=== PATIENT | male | born 1960 | race Caucasian/White ===

== ENCOUNTER 2016-09-18 07:45 | Inpatient (IN) | payer OTHER ==
[2016-09-18] VITALS (26 sets, daily range): BP systolic 80–140; BP diastolic 58–84; PULSE 103–143; RESP 22–33; TEMP 98.2; Ht 175.3 cm; Wt 74.5 kg
[~2016-09-18] VITALS: Ht 175.3 cm; Wt 74.5 kg
[~2016-09-18 07:45] MED LIST: ASPI81TA3 GTB; CEFE1FRO IV; CRAN3875 GTB; FLUC100T39 GTB; FLUC100T39 PO; GEMF600T60 GTB; IPRA3AMP HHN; LANS30CA GTB; LANT3I SC; LOV40I SC; MAGN400O4 PO; METF500T4 GTB; METO-407 GTB; NA P118E PR; NOVO3I SC; THIA100T10 PO; TRAM-40 GTB; [UNRECOGNIZED DRUG - CODE] PO
--- NOTE | 2016-09-18 08:00 | ERA ---
ER Documentation Chief Complaint Date/Time DATE: 09/18/16 TIME: 08:00 Chief Complaint FROM SNF FOR EVAL OF FEVER SINCE 0300 HPI Due to the patient's clinical condition and cognitive impairment he is unable to provide any history which is obtained entirely from transferring paramedics, review of intermediate facility records and the patient's family is at the bedside. 55-year-old male with a history of traumatic brain injury, chronic encephalopathy, functional quadriplegia, diabetes mellitus, ASHD, peripheral vascular disease, pneumonia, sepsis, renal failure, urinary tract infections, decubitus ulcers, metabolic syndrome, sideroblastic anemia, respiratory failure status post tracheostomy, PEG placement, craniotomy, appendectomy and cholecystectomy brought to the ED via ambulance from [facility] for evaluation of fever of 102.2 and heart rate of 150 this morning at 3 AM. ROS All systems reviewed and are negative except as per history of present illness. Medications Home Meds Active Scripts Nystatin* (Mycostatin*) 5 Ml Susp, 5 ML PO Q12 for 14 Days Prov:DIANA PAYNE NP 01/23/16 Lansoprazole* (Lansoprazole*) 30 Mg Capsule.dr, 30 MG GTB DAILY@06 for 30 Days Prov:DIANA PAYNE NP 01/23/16 Ipratropium-Albuterol (Ipratropium-Albuterol) 0.5-3 Mg/3 Ml Ampul.neb, 3 ML HHN Q6H RESP THERAPY for 30 Days Prov:DIANA PAYNE NP 01/23/16 Insulin Glargine* (Lantus*) 100 Unit/Ml Soln, 30 UNIT SC BID for 30 Days Prov:DIANA PAYNE NP 01/23/16 Insulin Aspart* (Novolog Insulin Pen*) 100 Unit/Ml Soln, 0 UNIT SC Q6 for 30 Days Prov:DIANA PAYNE NP 01/23/16 Enoxaparin Sodium* (Enoxaparin Sodium*) 40 Mg/0.4 Ml Syringe, 40 MG SC DAILY for 30 Days Prov:DIANA PAYNE NP 01/23/16 Aspirin (Aspirin) 81 Mg Chew, 81 MG GTB DAILY for 30 Days, TAB Prov:DIANA PAYNE NP 01/23/16 Reported Medications Zinc Sulfate* (Zinc Sulfate*) 220 Mg Tablet, 220 MG GTB DAILY, TAB 09/18/16 Ascorbic Acid* (Ascorbic Acid*) 500 Mg/5 Ml Syrup, 500 MG GTB DAILY, #300 ML 09/18/16 Cyanocobalamin* (Vitamin B12*) 100 Mcg Tab, 100 MCG GTB DAILY, TAB 09/18/16 Acetaminophen* (Acetaminophen*) 650 Mg Tablet, 650 MG GTB Q4 Y for PAIN AND OR ELEVATED TEMP, #30 TAB 09/18/16 Insulin Glargine,Hum.rec.anlog (Radha Royal) 300 Unit/1 Ml Insuln.pen, 62 UNIT SQ Q12 09/18/16 Multivit &Minerals/Ferrous Fum (MULTIVITAMIN LIQUID) 9 Mg/15 Ml Liquid, 18 MG GTB DAILY 09/18/16 Folic Acid* (Folic Acid*) 1 Mg Tablet, 1 MG GTB DAILY, TAB 09/18/16 Ferrous Sulfate (Ferrous Sulfate) 220 Mg/5 Ml Elixir, 330 MG GTB DAILY, BOTTLE 09/18/16 Bisacodyl* (Bisacodyl*) 10 Mg Supp, 10 MG HI DAILY Y for CONSTIPATION, SUPP 09/18/16 Docusate Sodium* (Docusate Sodium*) 100 Mg Capsule, 100 MG GTB QHS, #30 CAP 09/18/16 Chlorhexidine Gluconate (Peridex) 473 Ml Mouthwash, 15 ML MM Q12, BOTTLE 09/18/16 Ipratropium-Albuterol (Ipratropium-Albuterol) 0.5-3 Mg/3 Ml Ampul.neb, 3 ML INHALATION Q6 Y for WHEEZING AND SOB, #30 VIAL 09/18/16 Dextran 70/Hypromellose (Artificial Tears Eye Drops) 15 Ml Drops, 1 DROP BOTH EYES BID, BOTTLE 09/18/16 Albuterol Sulfate* (Albuterol Sulfate* Neb) 0.083%-3 Ml Neb, 2.5 MG NEB Q3H Y for WHEEZING AND SOB, #30 VIAL 09/18/16 Tramadol Hcl* (Ultram*) 50 Mg Tablet, 50 MG GTB DAILY Y for SEVERE PAIN LEVEL 7- 10, TAB 01/17/16 Cran/Vitc/Mannose/Inulin/Brom (Uti-Stat Liquid) 3,875 Mg/30 Ml Liquid, 3875 MG GTB BID 01/17/16 Gemfibrozil* (Gemfibrozil*) 600 Mg Tablet, 600 MG GTB BID, TAB 01/17/16 Thiamine* (Thiamine*) 100 Mg Tablet, 100 MG PO DAILY, TAB 01/09/16 Magnesium Hydroxide* (Milk Of Magnesia*) 400 Mg/5 Ml Oral.susp, 30 ML PO DAILY Y for CONSTIPATION, ML 01/09/16 Metformin* (Glucophage*) 500 Mg Tab, 500 MG GTB BID WITH MEALS, #30 TAB 01/09/16 Metoprolol Tartrate* (Lopressor*) 100 Mg Tablet, 100 MG GTB BID for HOLD FOR SBP <110,HR<60, #60 TAB 01/09/16 Na Phos,M-B/Na Phos,Di-Ba* (Fleet* Enema) 118 Ml Enema, 118 ML HI Q48H Y for CONSTIPATION, ENEMA 01/09/16 Discontinued Scripts Fluconazole* (Fluconazole*) 100 Mg Tablet, 100 MG PO DAILY for 7 Days, TAB Prov:SJ CALVIN 01/25/16 Cefepime Hcl/Dextrose, Iso-Osm (Cefepime 1 Gm Injection) 1 Gm/50 Ml Froz.piggy, 1 GM IV Q8H for 7 Days Prov:SJ CALVIN 01/25/16 Fluconazole* (Fluconazole*) 100 Mg Tablet, 100 MG GTB DAILY for 30 Days, TAB Prov:DIANA PAYNE NP 01/23/16 Allergies Allergies: Coded Allergies: No Known Allergy (Unverified , 09/18/16) PMhx/Soc Reviewed in chart. As per HPI. History of Surgery: Yes (s/p trach) Hx Neurological Disorder: Yes (traumatic brain injury, encephalopathy, craniotomy) Hx Respiratory Disorders: Yes (respiratory failure s/p tracheostomy) Hx Cardiac Disorders: Yes (HTN) Hx Psychiatric Problems: No Hx Miscellaneous Medical Probl: Yes (PAD,SIRS,htn,hypernatremia,chronic encephalopathy) Smoking Status: Unknown if ever smoked FmHx Reviewed in chart. Mother: CVA. Not relevant to presenting complaint. Physical Exam Vitals Vital Signs Date Time Temp Pulse Resp B/P Pulse Ox O2 Delivery O2 Flow Rate FiO2 09/18/16 09:50 102.3 129 29 97/57 99 8.0 09/18/16 08:23 8 09/18/16 07:51 104.9 157 34 111/69 99 09/18/16 07:50 98 8.0 Physical Exam Const: Chronically ill appearing, unresponsive Head: S/P craniotomy Eyes: Normal Conjunctiva ENT: Normal External Ears, Nose and Mouth. MM dry. Neck: Nontender. Tracheostomy site without erythema, induration or drainage Resp: Tachypneic. Decreased BS with scattered rhonchi and rales but no wheezes. Cardio: Tachycardic. Regular rate and rhythm, no murmurs Abd: Soft, non tender, non distended. Normal bowel sounds. G-Tube site clean without erythema or drainage. Skin: No petechiae or rashes. Poor skin turgor. Sacral erythema with decubitus. Back: No midline or flank tenderness Ext: No cyanosis, or edema Neur: Unresponsive. Flaccid. Result Diagram: [id number]/19/[id number] Results 24 hrs Laboratory Tests Test 09/18/16 08:00 09/18/16 08:05 09/18/16 08:18 09/18/16 08:24 Activated Partial Thromboplast Time 35.5Sec Alanine Aminotransferase (ALT/SGPT) 21IU/L Albumin 3.6g/dl Albumin/Globulin Ratio 0.73 Alkaline Phosphatase 194IU/L Anion Gap 19 Aspartate Amino Transf (AST/SGOT) 55IU/L Basophils # 0.010^3/ul Basophils % 0.2% Blood Morphology Comment Blood Urea Nitrogen 50mg/dl Calcium Level 9.5mg/dl Carbon Dioxide Level 26mmol/L Chloride Level 103mmol/L Cholesterol Level 216mg/dl Cholesterol/HDL Ratio 12.0RATIO Creatinine 1.19mg/dl Direct Bilirubin 0.00mg/dl Eosinophils # 0.010^3/ul Eosinophils % 0.0% Globulin 4.90g/dl Glucose Level 306mg/dl HDL Cholesterol 18mg/dl Hematocrit 43.2% Hemoglobin 14.3g/dl Hemoglobin A1c 8.0% INR International Normalized Ratio 1.30 Indirect Bilirubin 0.1mg/dl LDL Cholesterol, Calculated 101mg/dl Lactic Acid Level 4.2mmol/L Lymphocytes # 3.710^3/ul Lymphocytes % 24.2% Mean Corpuscular Hemoglobin 29.5pg Mean Corpuscular Hemoglobin Concent 33.1g/dl Mean Corpuscular Volume 88.9fl Mean Platelet Volume 10.9fl Monocytes # 1.810^3/ul Monocytes % 11.6% Neutrophils # 9.710^3/ul Neutrophils % 64.0% Nucleated Red Blood Cells # 0.010^3/ul Nucleated Red Blood Cells % 0.0/100WBC Platelet Count 86672^3/UL Potassium Level 4.4mmol/L Prothrombin Time 16.3Sec Prothrombin Time Ratio 1.3 Red Blood Count 4.8610^6/ul Red Cell Distribution Width 15.2% Sodium Level 144mmol/L Thyroid Stimulating Hormone (TSH) 1.150MIU/L Total Bilirubin 0.1mg/dl Total Protein 8.5g/dl Triglycerides Level 487mg/dl Troponin I 0.051ng/ml White Blood Count 15.110^3/ul Bedside Glucose 296mg/dL Arterial Blood HCO3 23.1mmol/L Arterial Blood Base Excess 0.1mmol/L Arterial Blood Oxygen Saturation 98.4mmHG Rah Test ACCEPTAB Arterial Blood Gas Puncture Site Right Radial Arterial Blood Carboxyhemoglobin 0% Arterial Blood Date Drawn 09/18/2016 8:48:37 AM Arterial Blood Methemoglobin 0.3% Arterial Blood pCO2 (Temp correct) 32.4mmhg Arterial Blood pH (Temp corrected) 7.470 Arterial Blood pO2 (Temp corrected) 124.0mmHG Blood Gas A-a O2 Differential 160.0mmHg Blood Gas Actual Respiration Rate 40 Blood Gas Modality [facility] Blood Gas Notified Time 09/18/2016 9:11:35 AM Blood Gas Notified Whom VENANCIO RT Blood Gas Specimen Source Blood arterial Blood Gas Temperature 37.0C FiO2 45.0% Oxyhemoglobin Percent 98.1% Total Hemoglobin 13.9g/dl Urine Bacteria MODERATE Urine Bilirubin NEGATIVE Urine Clarity HAZY Urine Color LT. YELLOW Urine Glucose NEGATIVE% Urine Hemoglobin 3+ Urine Ketones NEGATIVE Urine Leukocyte Esterase 1+ Urine Microscopic RBC 10-25/HPF Urine Microscopic WBC 10-25/HPF Urine Nitrite NEGATIVE Urine Specific [place] 1.020 Urine Total Protein 2+ Urine Urobilinogen 0.2 E.U./dL Urine pH 6.0 Current Medications Medications (Trade) Dose Ordered Sig/Shirley Route PRN Reason Start Time Stop Time Status Last Admin Dose Admin Sodium Chloride (NS) 2,170 ml BOLUS OVER 2 HOURS STAT IV* 09/18/16 08:01 09/18/16 13:51 DC 09/18/16 08:30 Acetaminophen 650 mg 650 mg ONCE STAT HI 09/18/16 08:01 09/18/16 13:51 DC 09/18/16 08:30 Cefepime HCl 50 ml @ 100 mls/hr ONCE STAT IVPB 09/18/16 08:01 09/18/16 13:52 DC 09/18/16 08:30 Vancomycin HCl (Vancocin) 250 ml @ 125 mls/hr ONCE ONCE IVPB 09/18/16 08:30 09/18/16 13:52 DC 09/18/16 09:35 Lidocaine 20 ml 20 ml ONCE ONCE SC 09/18/16 09:30 09/18/16 13:52 DC Sodium Chloride (NS) 1,000 ml @ 20 mls/hr Q24H IV 09/18/16 09:58 09/18/16 20:10 Ondansetron HCl (Zofran Inj) 4 mg Q6H PRN IV NAUSEA AND/OR VOMITING 09/18/16 10:00 Albuterol (Ventolin Hfa) 4 puff Q2H RESP THERAPY PRN INH SHORTNESS OF BREATH 09/18/16 10:00 Ipratropium [place] (Atrovent Hfa) 4 puff Q2H RESP THERAPY PRN INH SHORTNESS OF BREATH 09/18/16 10:00 Nitroglycerin (Nitroglycerin (Sl Tab) 0.4 Mg) 1 tab Q5M PRN SL CHEST PAIN 09/18/16 10:00 Acetaminophen (Tylenol Supp) 650 mg Q4H PRN HI PAIN LEVEL 1-3 OR FEVER 09/18/16 10:00 Morphine Sulfate (morphine) 2 mg Q4H PRN IV PAIN LEVEL 7-10 09/18/16 10:00 09/19/16 06:52 Lorazepam (Ativan) 1 mg Q2H PRN IV ANXIETY 09/18/16 10:00 Bisacodyl 10 mg 10 mg DAILY PRN HI CONSTIPATION 09/18/16 10:00 Sodium Chloride 1,000 ml @ 1,000 mls/hr Q1H IV 09/18/16 09:58 09/18/16 13:52 DC Norepinephrine (Levophed) 250 ml @ 7.5 mls/hr PER PROTOCOL IV 09/18/16 10:00 09/18/16 23:00 DC RHYTHM STRIP INTERPRETATION: Time: 08:00. Sinus tachycardia. No ectopy. Indication: Sepsis. EKG: TIME: 08:08. Sinus tachycardia. Ventricular rate 161. T-wave inversions in 3, aVF and V6. No acute ST segment elevation. Left anterior hemiblock. No ectopy. EP Interpretation: Abnormal EKG. IMAGING: PROCEDURE: XR Chest. CLINICAL INDICATION: Shortness of breath TECHNIQUE: A single portable view of the chest was obtained. COMPARISON: 01/17/2016 FINDINGS: The tracheostomy tube is unchanged. The cardiomediastinal silhouette is enlarged and is stable. Diffuse pulmonary vascular congestion is seen with underlying interstitial pulmonary edema. The possibility of small pleural effusions cannot be excluded. No dense consolidation is seen. The soft tissues and osseous structures are unremarkable. IMPRESSION: Diffuse pulmonary vascular congestion with underlying interstitial pulmonary edema. RPTAT: HPNM Physician Harpal Date Time Electronically viewed and signed by Physician Harpal on 09/18/2016 08 :59 / Procedures/MDM DOCUMENTS REVIEWED: ED nurse, prior records, intermediate facility records, prior ED. ED COURSE: Tylenol 650 mg HI normal saline 30 cc/kg fluid bolus over 2 hours. Cefepime 1 g/vancomycin 1 g [employer]-year-old male with a history of traumatic brain injury, chronic encephalopathy, functional quadriplegia, diabetes mellitus, ASHD , peripheral vascular disease, pneumonia, sepsis, renal failure, urinary tract infections, decubitus ulcers, metabolic syndrome, sideroblastic anemia, respiratory failure status post tracheostomy, PEG placement, craniotomy, appendectomy and cholecystectomy brought to the ED via ambulance from [facility] for evaluation of fever of 102.2 and heart rate of 150 this morning at 3 AM. Multiple criteria for systemic inflammatory response syndrome. Septic shock with lactate of 4.2 likely secondary to urinary tract infection. Chest x-ray consistent with volume overload and pulmonary edema. IV fluids, and antibiotics after cultures as per protocol. Admit MDM: Patient's infectious symptoms have not stabilized and the patient is at risk of rapid decompensation. The patient will be admitted to the ICU for careful hydration, antibiotic therapy, and infectious source control. Severe Sepsis criteria: Infectious source: Urinary tract infection End organ damage indicated by: Lactate 4.2 mmol/L Sepsis Management: Time of recognition of septic shock: 08:56 Within 3 hours of recognition: Blood cultures x 2 before broad-spectrum antibiotics: Yes 30 ml/kg NS bolus Completed Initial lactate 4.2 Repeat lactate 3.1 Septic Shock Assessment: Any lactic acid > 4.0 Yes No hypotension Volume Re-assessment for Septic Shock (post 30 ml/kg bolus): Temp 98.1, BP 100/58, HR 112, RR 25, Pox 100% Heart tachycardic, regular rate & rhythm Lungs Decreased breath sounds with rales at the bases Skin Warm & dry Cap Refill less than 2 seconds Peripheral pulses radially present Accepting Care Team Current data and ongoing care discussed. Time: 09:50 Admitting Physician: Dr Elizondo Critical Care: Critical care time not including other separately reportable procedures: 35 minutes Emergent fluid management while maintaining close respiratory support. Provision of immediate and broad-spectrum antibiotic therapy. Simultaneous assessment for possible sources in order to direct targeted therapy. Consideration for invasive and chemical support to prevent cardiopulmonary collapse. Departure Diagnosis: Primary Impression: Fever Qualified Code: R50.9 - Fever, unspecified fever cause Additional Impressions: Septic shock Urinary tract infection Qualified Code: N39.0 - Urinary tract infection with hematuria, site unspecified Pulmonary edema Qualified Code: J81.0 - Acute pulmonary edema Encephalopathy chronic Functional quadriplegia Tracheostomy in place PEG (percutaneous endoscopic gastrostomy) status Condition: Critical NAIF MAK MD Sep 18, 2016 08:00 Thiamine HCl (Vitamin B1) 100 mg DAILY PO 09/19/16 09:00 Tramadol HCl (Ultram) 50 mg DAILY PRN GTB SEVERE PAIN LEVEL 7-10 09/18/16 11:00 Miscellaneous Information 3,875 mg BID GTB 09/18/16 21:00 09/18/16 21:00 DC Miscellaneous Information 1 ea NOTE XX 09/18/16 11:00 Glucose (Glutose) 15 gm Q15M PRN PO DECREASED GLUCOSE 09/18/16 11:00 Glucose (Glutose) 22.5 gm Q15M PRN PO DECREASED GLUCOSE 09/18/16 11:00 Dextrose (D50w Syringe) 25 ml Q15M PRN IV DECREASED GLUCOSE 09/18/16 11:00 Dextrose (D50w Syringe) 50 ml Q15M PRN IV DECREASED GLUCOSE 09/18/16 11:00 Glucagon (Glucagen) 1 mg Q15M PRN IM DECREASED GLUCOSE 09/18/16 11:00 Glucose (Glutose) 15 gm Q15M PRN BUCCAL DECREASED GLUCOSE 09/18/16 11:00 Miscellaneous Information 1 ea NOTE XX 09/18/16 11:30 Glucose (Glutose) 15 gm Q15M PRN PO DECREASED GLUCOSE 09/18/16 11:30 Glucose (Glutose) 22.5 gm Q15M PRN PO DECREASED GLUCOSE 09/18/16 11:30 Dextrose (D50w Syringe) 25 ml Q15M PRN IV DECREASED GLUCOSE 09/18/16 11:30 Dextrose (D50w Syringe) 50 ml Q15M PRN IV DECREASED GLUCOSE 09/18/16 11:30 Glucagon (Glucagen) 1 mg Q15M PRN IM DECREASED GLUCOSE 09/18/16 11:30 Glucose (Glutose) 15 gm Q15M PRN BUCCAL DECREASED GLUCOSE 09/18/16 11:30 RHYTHM STRIP INTERPRETATION: Time: 08:00. Sinus tachycardia. No ectopy. Indication: Sepsis. EKG: TIME: 08:08. Sinus tachycardia. Ventricular rate 161. T-wave inversions in 3, aVF and V6. No acute ST segment elevation. Left anterior hemiblock. No ectopy. EP Interpretation: Abnormal EKG. IMAGING: PROCEDURE: XR Chest. CLINICAL INDICATION: Shortness of breath TECHNIQUE: A single portable view of the chest was obtained. COMPARISON: 01/17/2016 FINDINGS: The tracheostomy tube is unchanged. The cardiomediastinal silhouette is enlarged and is stable. Diffuse pulmonary vascular congestion is seen with underlying interstitial pulmonary edema. The possibility of small pleural effusions cannot be excluded. No dense consolidation is seen. The soft tissues and osseous structures are unremarkable. IMPRESSION: Diffuse pulmonary vascular congestion with underlying interstitial pulmonary edema. RPTAT: HPNM Urbano Ribera Physician Date Time Electronically viewed and signed by Urbano Ribera Physician on 09/18/2016 08 :59 / Procedures/MDM DOCUMENTS REVIEWED: ED nurse, prior records, intermediate facility records, prior ED. ED COURSE: Tylenol 650 mg HI normal saline 30 cc/kg fluid bolus over 2 hours. Cefepime 1 g/vancomycin 1 g [employer]-year-old male with a history of traumatic brain injury, chronic encephalopathy, functional quadriplegia, diabetes mellitus, ASHD , peripheral vascular disease, pneumonia, sepsis, renal failure, urinary tract infections, decubitus ulcers, metabolic syndrome, sideroblastic anemia, respiratory failure status post tracheostomy, PEG placement, craniotomy, appendectomy and cholecystectomy brought to the ED via ambulance from [facility] for evaluation of fever of 102.2 and heart rate of 150 this morning at 3 AM. Multiple criteria for systemic inflammatory response syndrome. Septic shock with lactate of 4.2 likely secondary to urinary tract infection. Chest x-ray consistent with volume overload and pulmonary edema. IV fluids, and antibiotics after cultures as per protocol. Patient be admitted to the intensive care unit for further evaluation and management. Admit MDM: Patient's infectious symptoms have not stabilized and the patient is at risk of rapid decompensation. The patient will be admitted for careful hydration, antibiotic therapy, and infectious source control. Severe Sepsis criteria: Infectious source: Urinary tract infection End organ damage indicated by: Lactate 4.2 mmol/L Sepsis Management: Time of recognition of septic shock: 08:56 Within 3 hours of recognition: Blood cultures x 2 before broad-spectrum antibiotics: Yes 30 ml/kg NS bolus Completed Initial lactate 4.2 Repeat lactate 3.1 Septic Shock Assessment: Any lactic acid > 4.0 Yes No hypotension Volume Re-assessment for Septic Shock (post 30 ml/kg bolus): Temp 98.1, BP 100/58, HR 112, RR 25, Pox 100% Heart tachycardic, regular rate & rhythm Lungs Decreased breath sounds with rales at the bases Skin Warm & dry Cap Refill less than 2 seconds Peripheral pulses radially present Accepting Care Team Current data and ongoing care discussed. Time: 09:50 Admitting Physician: Dr Elizondo Critical Care: Critical care time not including other separately reportable procedures: 35 minutes Emergent fluid management while maintaining close respiratory support. Provision of immediate and broad-spectrum antibiotic therapy. Simultaneous assessment for possible sources in order to direct targeted therapy. Consideration for invasive and chemical support to prevent cardiopulmonary collapse. Departure Diagnosis: Primary Impression: Fever Qualified Code: R50.9 - Fever, unspecified fever cause Additional Impressions: Septic shock Urinary tract infection Qualified Code: N39.0 - Urinary tract infection with hematuria, site unspecified Pulmonary edema Qualified Code: J81.0 - Acute pulmonary edema Encephalopathy chronic Functional quadriplegia Tracheostomy in place PEG (percutaneous endoscopic gastrostomy) status Condition: Critical NAIF MAK MD Sep 18, 2016 08:00 NAIF MAK MD Sep 18, 2016 08:00
[2016-09-18] MEDS ORDERED: ACETAMINOPHEN 650 MG SUPP PR STA (08:01)
[2016-09-18] MEDS ORDERED: CEFEPIME 2GM/50 ML (PMX) 50 ML IVPB STA (08:01)
[2016-09-18] MEDS ORDERED: SODIUM CHLORIDE 0.9% 1L BAG IV* STA (08:01)
[2016-09-18 08:26] LABS: BASOPHILS % 0.2 % (0.0-2.0); HEMATOCRIT 43.2 % (42.0-52.0); HEMOGLOBIN 14.3 g/dl (14.0-18.0); LYMPHOCYTES # 3.7 10^3/ul (0.8-2.9); LYMPHOCYTES % 24.2 % (15.0-51.0); MEAN CORPUSCULAR HEMOGLOBIN 29.5 pg (29.0-33.0); MEAN CORPUSCULAR HGB CONC 33.1 g/dl (32.0-37.0); MEAN CORPUSCULAR VOLUME 88.9 fl (82.0-101.0); MEAN PLATELET VOLUME 10.9 fl (7.4-10.4); MONOCYTE # 1.8 10^3/ul (0.3-0.9); MONOCYTES % 11.6 % (0.0-11.0); NEUTROPHIL # 9.7 10^3/ul (1.6-7.5); PLATELET COUNT 296 10^3/UL (140-440); RED BLOOD COUNT 4.86 10^6/ul (4.70-6.10); RED CELL DISTRIBUTION WIDTH 15.2 % (11.5-14.5); UNCORRECTED WBC 15.1 10^3/ul (4.8-10.8); WHITE BLOOD COUNT 15.1 10^3/ul (4.8-10.8)
[2016-09-18] MEDS ORDERED: VANCOMYCIN 1 GM (PMX) 250 ML IVPB ONE (08:30)
[2016-09-18 08:31] LABS: CONDITION 1; LH ANALYZER COMMENTS 1
[2016-09-18 08:37] LABS: INR 1.3; PROTIME 16.3 Sec (12.2-14.2); PT RATIO 1.3
[2016-09-18 08:38] LABS: ALBUMIN 3.6 g/dl (3.3-4.9); PARTIAL THROMBOPLASTIN TIME 35.5 Sec (25.0-35.0); POTASSIUM 4.4 mmol/L (3.5-5.1)
[2016-09-18 08:40] LABS: BILIRUBIN,INDIRECT 0.1 mg/dl (0-1.1); BILIRUBIN,TOTAL 0.1 mg/dl (0.2-1.3); CREATININE 1.19 mg/dl (0.61-1.24)
[2016-09-18 08:41] LABS: ALBUMIN/GLOBULIN RATIO 0.73; TOTAL PROTEIN 8.5 g/dl (6.1-8.1)
[2016-09-18 08:42] LABS: CALCIUM 9.5 mg/dl (8.4-10.2)
[2016-09-18 08:46] LABS: ADD UMIC YES; URINE BILIRUBIN (Dip) NEGATIVE (NEGATIVE); URINE BLOOD (Dip) 3+ (NEGATIVE); URINE COLOR LT. YELLOW (YELLOW); URINE GLUCOSE (Dip) NEGATIVE (NEGATIVE); URINE KETONES (Dip) NEGATIVE (NEGATIVE); URINE LEUKOCYTE ESTERASE (Dip) 1+ (NEGATIVE); URINE NITRITE (Dip) NEGATIVE (NEGATIVE); URINE TOTAL PROTEIN (Dip) 2+ (NEGATIVE); URINE UROBILINOGEN (Dip) 0.2 E.U./dL (0.1-1.0)
[2016-09-18 08:53] LABS: TROPONIN-I 0.051 ng/ml (0.00-0.12)
--- NOTE | 2016-09-18 08:59 | RADRPT ---
PROCEDURE: XR Chest. CLINICAL INDICATION: Shortness of breath TECHNIQUE: A single portable view of the chest was obtained. COMPARISON: 01/17/2016 FINDINGS: The tracheostomy tube is unchanged. The cardiomediastinal silhouette is enlarged and is stable. Dif fuse pulmonary vascular congestion is seen with underlying interstitial pulmonary edema. The possib ility of small pleural effusions cannot be excluded. No dense consolidation is seen. The soft tissu es and osseous structures are unremarkable. IMPRESSION: Diffuse pulmonary vascular congestion with underlying interstitial pulmonary edema. RPTAT: HPNM Physician Harpal Date Time Electronically viewed and signed by Urbano Ribera Physician on 09/18/2016 08:59 /
[2016-09-18 09:06] LABS: BACTERIA,URINE MODERATE
[2016-09-18 09:11] LABS: Allen Test ACCEPTAB; Arterial Base Excess 0.1 mmol/L (-3.0-3); Arterial COHb 0 % (0.0-3.0); Arterial Fraction of Oxyhgb 98.1 % (93.0-99.0); Arterial HCO3 23.1 mmol/L (22.0-26.0); Arterial MetHb 0.3 % (0.0-1.5); Arterial Total Hemglobin 13.9 g/dl (12.0-18.0); MODE TRACH COLLAR
[2016-09-18] MEDS ORDERED: LIDOCAINE 1% (MDV) 20 ML INJ SC ONE (09:30)
[2016-09-18] MEDS ORDERED: BISACODYL 10 MG SUPP PR PRN (10:00)
[2016-09-18] MEDS ORDERED: NITROGLYCERIN (SL) 0.4 MG TAB SL PRN (10:00)
[2016-09-18] MEDS ORDERED: ALBUTEROL HFA 8 GM INHALER INH PRN (10:00)
[2016-09-18] MEDS ORDERED: ONDANSETRON 4 MG INJ IV PRN (10:00)
[2016-09-18] MEDS ORDERED: LORAZEPAM 2 MG INJ IV PRN (10:00)
[2016-09-18] MEDS ORDERED: IPRATROPIUM (HFA) 12.9 GM INHALER INH PRN (10:00)
[2016-09-18] MEDS ORDERED: NORepinephrine 8MG/250 ML (PMX 250 ML IV SCH (10:00)
[2016-09-18] MEDS ORDERED: ACETAMINOPHEN 650 MG SUPP PR PRN (10:00)
[2016-09-18] MEDS ORDERED: GLUCOSE GEL 15 GRAM TUBE BUCCAL PRN ×2 (11:00→11:30)
[2016-09-18] MEDS ORDERED: MAGNESIUM HYDROXIDE 30ML CUP PO PRN (11:00)
[2016-09-18] MEDS ORDERED: DEXTROSE 50% 50 ML SYRINGE IV PRN ×4 (11:00→11:30)
[2016-09-18] MEDS ORDERED: GLUCAGON 1 MG INJ IM PRN ×2 (11:00→11:30)
[2016-09-18] MEDS ORDERED: traMADol 50 MG TAB GTB PRN (11:00)
[2016-09-18] MEDS ORDERED: GLUCOSE GEL 15 GRAM TUBE PO PRN ×4 (11:00→11:30)
[2016-09-18] MEDS ORDERED: ALBU2.5V3 NEB (11:33)
[2016-09-18] MEDS ORDERED: DEXT15DR4 BOTH EYES (11:34)
[2016-09-18] MEDS ORDERED: IPRA3AMP INHALATION (11:34)
[2016-09-18] MEDS ORDERED: CHLO473M4 MM (11:35)
[2016-09-18] MEDS ORDERED: DOCU-159 GTB (11:36)
[2016-09-18] MEDS ORDERED: DULR PR (11:37)
[2016-09-18] MEDS ORDERED: FERR220S3 GTB (11:38)
[2016-09-18] MEDS ORDERED: FOLI-49 GTB (11:39)
[2016-09-18] MEDS ORDERED: MULT9LIQ4 GTB (11:40)
[2016-09-18] MEDS ORDERED: ACET-2047 GTB (11:41)
[2016-09-18] MEDS ORDERED: INSU300I SQ (11:41)
[2016-09-18] MEDS ORDERED: CYAN100 GTB (11:46)
[2016-09-18] MEDS ORDERED: ASCO500S2 GTB (11:47)
[2016-09-18] MEDS ORDERED: ZINC220T GTB (11:48)
--- NOTE | 2016-09-18 11:59 | RADRPT ---
PROCEDURE: XR Chest. CLINICAL INDICATION: PICC line placement TECHNIQUE: PA and lateral chest x-ray. COMPARISON: 09/18/2016 at 0834 hours FINDINGS: There has been interval placement of right-sided PICC line which terminates 3 cm into the right atri um. Tracheostomy tube demonstrates stable and satisfactory position. The lung volumes are low. There are diffuse bilateral interstitial and airspace opacities which are unchanged from previous ex am. There is no focal consolidation. No pleural effusion identified. No evidence of pneumothorax. The cardiomediastinal silhouette is unremarkable. The soft tissues are within normal limits. Bony structures are unremarkable. IMPRESSION: 1. Interval placement right-sided PICC line which terminates 3 cm into the right atrium. 2. Stable and satisfactory position of tracheostomy tube. 3. Diffuse bilateral interstitial and airspace opacities, unchanged from previous exam. RPTAT: QQ .Roscoe Guardado MD, MD Date Time Electronically viewed and signed by .Roscoe Guardado MD, MD on 09/18/2016 11:58 .M/
[2016-09-18] MEDS ORDERED: INSULIN ASPART [NOVOLOG] 3 ML PEN SC SCH (12:00)
--- NOTE | 2016-09-18 13:07 | RADRPT ---
Echocardiogram Report Patient Name: TONNY SHIPLEY Gender: Male Date: 1960 Study Date: 18-Sep-2016 Duplicate Maker: RACHEL [facility] Location: [facility] Ref. Physician: DARCY HEALY Quality: Technically Difficult Study Procedures: Transthoracic echocardiogram with complete 2D, M-Mode, and doppler examination. Indications: Pulmonary Edema. 2D/M Mode Doppler Measurement Value Normal Ranges Measurement Value Normal Ranges RVDd 2D 1.2 0.9 - 2.6 cm AV Peak Janusz 1.6 m/sec LVIDd 2D 4.2 3.5 - 5.6 cm AV Peak PG 10.0 mmHg LVIDs 2D 3.2 2.1 - 4.1 cm LVOT Peak Janusz 1.5 m/sec LVPWd 2D 1.3 0.6 - 1.1 cm LVOT Peak PG 9.0 mmHg AoR Diam 2D 2.4 2.0 - 3.7 cm MV E Peak Janusz 0.8 m/sec EF 2D 47.3 50.0 - 65.0 % LA Dimen 2D 2.9 2.3 - 4.0 cm Findings Left Ventricle: Hyperdynamic left ventricular systolic function. Normal left ventricular cavity size. Left ventricular wall thickness upper limits of normal. Ejection fraction is visually estimated at 70 %. Tissue Doppler/Mitral Doppler indices are consistent with impaired relaxation (Stage I diastolic dysfunction). Right Ventricle: Normal right ventricular size. Hyperdynamic right ventricular systolic function. Left Atrium: The left atrium is normal in size. Right Atrium: Right atrium at upper limits of normal. Mitral Valve: Mild mitral leaflet calcification. Mild mitral annular calcification. Trace mitral regurgitation. Aortic Valve: Probable trileaflet aortic valve, although not all leaflets are visualized. Trace aortic valve regurgitation. Tricuspid Valve: Tricuspid valve not well visualized. There is trace tricuspid regurgitation. Pericardium: Normal pericardium with no significant pericardial effusion. Aorta: Normal aortic root. IVC: Normal size and no respiratory collapse consistent with elevated right atrial pressure. Conclusions 1.Hyperdynamic left ventricular systolic function. Normal left ventricular cavity size. Left ventricular wall thickness upper limits of normal. Ejection fraction is visually estimated at 70 %. Tissue Doppler/Mitral Doppler indices are consistent with impaired relaxation (Stage I diastolic dysfunction). Electronically Signed By: Angel Turner 18-Sep-2016 13:06:40 -0800 Patient Name: TONNY SHIPLEY Study Date: 18-Sep-[id number]
--- NOTE | 2016-09-18 13:24 | HP ---
Date/Time of Note Date/Time of Note DATE: 09/18/16 TIME: 13:16 Assessment/Plan VTE Prophylaxis VTE Prophylaxis Intervention: LMWH Assessment/Plan Assessment/Plan 55 yo male with a past medical history of chronic encephalopathy, pressure ulcers, s/p trach/peg, Type II DM, HLP, Essential hypertension, quadriplegia, chronic anemia, who presents with change in mentation. 1. Acute on chronic encephalopathy - 2/2 to #2 - monitor changes, if worsening consider neuro c/s 2. Severe Sepsis - 2/2 UTI - continue with IV antibiotics. check cultures. pressor support as needed prn 3. Trach dependent respiratory failure - monitor acute changes, consult pulm - low threshold to convert to vent 4. ARF - 2/2 ATN - from #2 - avoid nephrotoxins, renally adjust medications 5. Transaminitis - 2/2 #1 6. Coagulopathy - monitor INR - maintain below 1.5 7. Pressure ulcers - wound consult 8. Type II DM - uncontrolled - moderate ISS, Lantus/novolog, check hgba1c 9. Essential hypertension - hypotensive - pressor support 10. Chronic Anemia - monitor H/H 11. Dyslipidemia - hold statin, check Lipid panel 12. Quadriplegia - fall precautions 13. GI ppx - pepcid IV 14. DVT ppx - lovenox as per clinical course. this critical care note took greater than 1 hour to complete HPI/ROS Admit Date/Time Admit Date/Time 09/18/2016, 1:16 pm Hx of Present Illness 55 yo male with a past medical history of chronic encephalopathy, pressure ulcers, s/p trach/peg, Type II DM, HLP, Essential hypertension, quadriplegia, chronic anemia, who presents with change in mentation. He was noted to have elevated temperatures of 102 F axillary. All this information was gathered from the chart and the ED physician as the patient is non-verbal and obtunded. ED course: IV antibiotics, IV NS bolus for septic protocol ROS Subjective hx not possible: pt non-verbal PMH/Family/Social Past Medical History chronic encephalopathy, pressure ulcers, s/p trach/peg, quadriplegia, chronic anemia Medical History: diabetes, high cholesterol, hypertension Past Surgical History Past Surgical Hx: appendectomy, cholecystectomy, other (crainiotomy) Family History Significant Family History: no pertinent family hx Social History Alcohol Use: none Smoking Status: Unknown if ever smoked Drug Use: none Exam/Review of Systems Vital Signs Vitals Vital Signs Date Time Temp Pulse Resp B/P Pulse Ox O2 Delivery O2 Flow Rate FiO2 09/18/16 12:59 98.2 111 25 99/56 100 Nasal Cannula 6.0 Exam Exam Gen Blayne: obtunded, no sedation HEENT: craniotomy scar present, PERRL, no JVD/Carotid bruits NECK: supple, no thyromegaly, trach site copious secretions noted THORAX: symmetrical, no obvious deformities CV: S1S2, tachycardiac, no M/G/R Lungs: coarse breath sounds throughout all lung garvin Abd: soft, NT/ND, +BS, PEG site c/d/I EXT: 1+ bilateral lower extremity lower edema, no ecchymosis, no clubbing, FROM Neuro: obtunded Psych: withdrawn Skin: decreased turgor, taught skin Labs Result Diagram: 09/18/16 0800 09/18/16 0800 Medications Medications Current Medications Vancomycin HCl (Vancocin) 250 ml @ 125 mls/hr ONCE ONCE IVPB Last administered on 09/18/16t 09:35; Admin Dose 125 MLS/HR; Start 09/18/16 at 08:30 ; Stop 09/18/16 at 10:29 Lidocaine 20 ml 20 ml ONCE ONCE SC ; Start 09/18/16 at 09:30; Stop 09/18/16 at 09:31 Sodium Chloride (NS) 1,000 ml @ 50 mls/hr Q20H IV ; Start 09/18/16 at 09:58 Ondansetron HCl (Zofran Inj) 4 mg Q6H PRN IV NAUSEA AND/OR VOMITING; Start 07/23 at 10:00 Nitroglycerin (Nitroglycerin (Sl Tab) 0.4 Mg) 1 tab Q5M PRN SL CHEST PAIN; Start 09/18/16 at 10:00 Acetaminophen (Tylenol Supp) 650 mg Q4H PRN [place] PAIN LEVEL 1-3 OR FEVER; Start 09/18/16 at 10:00 Morphine Sulfate (morphine) 2 mg Q4H PRN IV PAIN LEVEL 7-10; Start 09/18/16 at 10:00 Lorazepam (Ativan) 1 mg Q2H PRN IV ANXIETY; Start 09/18/16 at 10:00 Bisacodyl (Dulcolax Supp) 10 mg DAILY PRN [place] CONSTIPATION; Start 09/18/16 at 10 :00 Famotidine (Pepcid Iv) 20 mg Q12 IV ; Start 09/18/16 at 21:00 Enoxaparin Sodium 40 mg 40 mg DAILY SC ; Start 09/19/16 at 09:00 Sodium Chloride 1,000 ml @ 1,000 mls/hr Q1H IV ; Start 09/18/16 at 09:58; Stop 09/18/16 at 11:57 Cefepime HCl (Maxipime 2gm/50 ml (Pmx)) 50 ml @ 100 mls/hr Q12 IVPB ; Start 07/23 at 21:00 Insulin Aspart (Novolog Insulin Pen) NOVOLOG *MODERATE* ALGORI... Q4 SC ; Start 09/18/16 at 13:00 Aspirin (Aspirin) 81 mg DAILY GTB ; Start 09/19/16 at 09:00 Gemfibrozil (Lopid) 600 mg BID PO ; Start 09/18/16 at 21:00 Insulin Glargine (Lantus) 30 unit BID SC ; Start 09/18/16 at 21:00 Lansoprazole (Prevacid) 30 mg DAILY@06 GTB ; Start 09/19/16 at 06:00 Magnesium Hydroxide (Milk Of Mag) 30 ml DAILY PRN PO CONSTIPATION; Start at 11:00 Metoprolol Tartrate (Lopressor) 100 mg BID GTB ; Start 09/18/16 at 21:00 Nystatin (Nystatin Susp) 5 ml Q12 PO ; Start 09/18/16 at 21:00 Thiamine HCl (Vitamin B1) 100 mg DAILY PO ; Start 09/19/16 at 09:00 Tramadol HCl (Ultram) 50 mg DAILY PRN GTB SEVERE PAIN LEVEL 7-10; Start at 11:00 Miscellaneous Information 1 ea NOTE XX ; Start 09/18/16 at 11:00 Glucose (Glutose) 15 gm Q15M PRN PO DECREASED GLUCOSE; Start 09/18/16 at 11:00 Glucose (Glutose) 22.5 gm Q15M PRN PO DECREASED GLUCOSE; Start 09/18/16 at 11: 00 Dextrose (D50w Syringe) 25 ml Q15M PRN IV DECREASED GLUCOSE; Start 09/18/16 at 11:00 Dextrose (D50w Syringe) 50 ml Q15M PRN IV DECREASED GLUCOSE; Start 09/18/16 at 11:00 Glucagon (Glucagen) 1 mg Q15M PRN IM DECREASED GLUCOSE; Start 09/18/16 at 11:00 Glucose (Glutose) 15 gm Q15M PRN BUCCAL DECREASED GLUCOSE; Start 09/18/16 at 11 :00 Miscellaneous Information 1 ea NOTE XX ; Start 09/18/16 at 11:30 Glucose (Glutose) 15 gm Q15M PRN PO DECREASED GLUCOSE; Start 09/18/16 at 11:30 Glucose (Glutose) 22.5 gm Q15M PRN PO DECREASED GLUCOSE; Start 09/18/16 at 11: 30 Dextrose (D50w Syringe) 25 ml Q15M PRN IV DECREASED GLUCOSE; Start 09/18/16 at 11:30 Dextrose (D50w Syringe) 50 ml Q15M PRN IV DECREASED GLUCOSE; Start 09/18/16 at 11:30 Glucagon (Glucagen) 1 mg Q15M PRN IM DECREASED GLUCOSE; Start 09/18/16 at 11:30 Glucose (Glutose) 15 gm Q15M PRN BUCCAL DECREASED GLUCOSE; Start 09/18/16 at 11 :30 Procedures Procedures CXR IMPRESSION: Diffuse pulmonary vascular congestion with underlying interstitial pulmonary edema. DARCY HEALY MD Sep 18, 2016 13:24
[2016-09-18] MEDS: SOD CHLORIDE 0.9% 1,000 ML IV SCH ×3 (13:30→20:10)
[2016-09-18] MEDS ORDERED: FUROSEMIDE 40 MG INJ IV ONE (13:30)
[2016-09-18] MEDS: ALBUTEROL/IPRATROPIUM (NEB) 3 ML AMP HHN SCH ×2 (14:00→19:42)
[2016-09-18 14:34] LABS: THYROID STIMULATING HORMONE 1.15 MIU/L (0.465-4.680)
[2016-09-18] MEDS: LACTATED RINGER'S 1,000 ML IV SCH ×2 (14:48→19:30)
--- NOTE | 2016-09-18 15:10 | RADRPT ---
PROCEDURE: Ultrasound guided PICC line placement CLINICAL INDICATION: PICC line placement COMPARISON: None available TECHNIQUE: Real-time high-resolution ultrasound imaging in transverse and longitudinal planes was p erformed in the upper arm to evaluate venous size and location for needle insertion during PICC line placement. Waistline Joiner Overlock images were submitted for interpretation. FINDINGS: Focused ultrasound imaging of the upper arm was performed for placement of PICC line. No radiologist was present for the procedure. No diagnosis was made from the images. IMPRESSION: 1. Focused ultrasound for placement of PICC line. RPTAT: QQ .Roscoe Guardado MD, Date Time Electronically viewed and signed by .Roscoe Guardado MD, on 09/18/2016 14:12 .M/
[2016-09-18] MEDS ORDERED: HEPARIN (10 UNITS/ML) 5ML SYG IV ONE (15:30)
[2016-09-18] MEDS: INSULIN ASPART [NOVOLOG] 3 ML PEN SC SCH ×3 (15:40→20:43)
[2016-09-18] MEDS: morphine 2 MG INJ IV PRN ×2 (16:03→19:58)
--- NOTE | 2016-09-18 18:27 | CONS ---
DATE OF ADMISSION: 09/18/2016 DATE OF CONSULTATION: 09/18/2016 TYPE OF CONSULTATION: Pulmonary. 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 for worsening obtundation. PAST MEDICAL HISTORY: As above. PAST SURGICAL HISTORY: Appendectomy, cholecystectomy, craniotomy. FAMILY HISTORY: Insignificant. SOCIAL HISTORY: Lives in a group home. No known tobacco or illicit drug use or alcohol. PHYSICAL EXAMINATION: VITAL SIGNS: Heart rate is 115, blood pressure is 99/56, oxygen saturation 100% on trach collar, te mperature is 98.2. GENERAL: Obtunded gentleman with a tracheostomy in place. HEENT: Craniotomy scar is present. PERRL. NECK: No jugular venous distention. Tracheostomy site is clear. CHEST: There are decreased air movement bilaterally, although it is clear to auscultation. CARDIOVASCULAR: Tachycardic. S1 and S2. No murmurs, rubs, or gallops. ABDOMEN: Soft, nontender, positive bowel sounds. PEG site is clear. EXTREMITIES: There is 1+ lower extremity edema. LABORATORY DATA: WBC is 15.1, hemoglobin is 14.3. BUN is 50, creatinine is 1.19. ABG: pH is 7.47 , pCO2 is 32, pO2 is 124 on 45% trach collar. UA is 10 to 25 WBCs. Coags are within normal limits. Chest x-ray shows low lung volumes and mild pulmonary venous congestion. IMPRESSION: 1. Severe sepsis, likely due to urosepsis. 2. Altered mental status. Acute on chronic encephalopathy likely precipitated by sepsis. 3. Chronic trach, although not chronically requiring mechanical ventilation. 4. Azotemia appears to be consistent with prerenal due to his hypovolemia. 5. Mild transaminitis consistent with maybe early ischemic hepatopathy. 6. Decubitus ulcers. 7. Diabetes. 8. Hypertension. 9. Anemia. RECOMMENDATIONS: 1. Broad-spectrum antibiotics to cover for resistant pathogens that this patient has had in culture s in the past. I would suggest inclusion of ESBL coverage. 2. IV fluids with close monitoring of urine output. 3. Follow lactate clearance. 4. If needed, will institute mechanical ventilation to assist with optimization of management of se psis and to reduce work of breathing. 5. Continue DVT and GI prophylaxis. Dictated By: RADHA CHAVEZ MD NK/NTS Conf#: [id number] DID#: [id number] CC: DARCY HEALY MD; CARMINA DAVIDSON MD;*EndCC*
[2016-09-18] MEDS: GEMFIBROZIL 600 MG TAB PO SCH (20:40)
[2016-09-18] MEDS: FAMOTIDINE 20 MG INJ IV SCH (20:40)
[2016-09-18] MEDS: NYSTATIN SUSP 5 ML CUP PO SCH (20:41)
[2016-09-18] MEDS: INSULIN GLARGINE [LANtus] 3 ML PEN SC SCH (20:44)
[2016-09-18] MEDS: METOPROLOL 100 MG TAB GTB SCH (20:52)
[2016-09-18] MEDS ORDERED: NON-FORMULARY/PATIENT OWN MED (Cran/Vitc/Mannose/Inulin/Brom (Uti-Stat Liquid) 3,875 MG) GTB SCH (21:00)
[2016-09-18] MEDS: CEFEPIME 2GM/50 ML (PMX) 50 ML IVPB SCH (22:38)
[2016-09-19] VITALS (33 sets, daily range): BP systolic 87–120; BP diastolic 51–80; PULSE 82–138; RESP 14–33
[2016-09-19] MEDS: LACTATED RINGER'S 1,000 ML IV SCH ×5 (00:50→21:25)
[2016-09-19] MEDS: INSULIN ASPART [NOVOLOG] 3 ML PEN SC SCH ×6 (00:53→21:00)
[2016-09-19] MEDS: ALBUTEROL/IPRATROPIUM (NEB) 3 ML AMP HHN SCH ×4 (01:26→20:00)
[2016-09-19 04:57] LABS: BASOPHILS % 0.3 % (0.0-2.0); HEMATOCRIT 39.5 % (42.0-52.0); HEMOGLOBIN 12.9 g/dl (14.0-18.0); LYMPHOCYTES # 2.1 10^3/ul (0.8-2.9); LYMPHOCYTES % 12.6 % (15.0-51.0); MEAN CORPUSCULAR HEMOGLOBIN 29.4 pg (29.0-33.0); MEAN CORPUSCULAR HGB CONC 32.6 g/dl (32.0-37.0); MEAN CORPUSCULAR VOLUME 90.1 fl (82.0-101.0); MEAN PLATELET VOLUME 11.3 fl (7.4-10.4); MONOCYTE # 0.9 10^3/ul (0.3-0.9); MONOCYTES % 5.5 % (0.0-11.0); NEUTROPHIL # 13.8 10^3/ul (1.6-7.5); NEUTROPHILS % 81.6 % (39.0-77.0); PLATELET COUNT 249 10^3/UL (140-440); RED BLOOD COUNT 4.38 10^6/ul (4.70-6.10); RED CELL DISTRIBUTION WIDTH 15.3 % (11.5-14.5); UNCORRECTED WBC 16.9 10^3/ul (4.8-10.8); WHITE BLOOD COUNT 16.9 10^3/ul (4.8-10.8)
[2016-09-19 05:03] LABS: CONDITION 1; LH ANALYZER COMMENTS 1; POTASSIUM 3.6 mmol/L (3.5-5.1)
[2016-09-19] MEDS: LANSOPRAZOLE 30 MG CAP GTB SCH (05:05)
[2016-09-19 05:06] LABS: CREATININE 0.93 mg/dl (0.61-1.24)
[2016-09-19 05:07] LABS: CALCIUM 8.3 mg/dl (8.4-10.2)
[2016-09-19 05:08] LABS: ALBUMIN 2.9 g/dl (3.3-4.9)
[2016-09-19 05:09] LABS: POTASSIUM 4.1 mmol/L (3.5-5.1)
[2016-09-19 05:11] LABS: ALBUMIN/GLOBULIN RATIO 0.76; BILIRUBIN,INDIRECT 0.3 mg/dl (0-1.1); BILIRUBIN,TOTAL 0.3 mg/dl (0.2-1.3); CREATININE 0.86 mg/dl (0.61-1.24); TOTAL PROTEIN 6.7 g/dl (6.1-8.1)
[2016-09-19 05:12] LABS: CALCIUM 8.2 mg/dl (8.4-10.2)
[2016-09-19 05:23] LABS: Allen Test ACCEPTAB; Arterial COHb 0.6 % (0.0-3.0); Arterial Fraction of Oxyhgb 97.2 % (93.0-99.0); Arterial HCO3 25.8 mmol/L (22.0-26.0); Arterial MetHb 0.3 % (0.0-1.5); Arterial Total Hemglobin 13.8 g/dl (12.0-18.0); MODE TRACH COLLAR
[2016-09-19] MEDS: morphine 2 MG INJ IV PRN (06:52)
--- NOTE | 2016-09-19 06:57 | RADRPT ---
PROCEDURE: CHEST - 1 VIEW September 19, 2016 at 06:45 a.m. CLINICAL INDICATION: 55-year-old male with shortness of breath. TECHNIQUE: A single frontal AP view of the chest was performed. The images were reviewed on a PAC S workstation. COMPARISON: Chest x-ray September 18, 2016 and 11:42 a.m. FINDINGS: There is a right-sided PICC line again identified with the tip in the distal superior vena cava. Th ere is a tracheostomy tube present. The cardiomediastinal silhouette is mildly enlarged. There has been interval clearing of the previously identified pulmonary vascular congestion. There is a shal low inspiration. There is minimal bibasilar subsegmental atelectasis. There is no evidence for foca l consolidation. There is no evidence for pneumothorax. Surgical clips are seen within the gallbladd er fossa from prior cholecystectomy. Degenerative changes are seen within the spine. IMPRESSION: 1. Right-sided PICC line. 2. Tracheostomy tube. 3. Clearing pulmonary vascular congestion. 4. Cardiomegaly. 5. Shallow inspiration. 6. Mild bibasilar subsegmental atelectasis. 7. Status post cholecystectomy. 8. Degenerative changes within the spine. .Nathen Treadwell MD, Date Time Electronically viewed and signed by .Nathen Treadwell MD, on 09/19/2016 06:57 .M/
[2016-09-19] MEDS ORDERED: SOD CHLORIDE 0.9% 500 ML IV ONE (09:30)
[2016-09-19] MEDS: GEMFIBROZIL 600 MG TAB PO SCH ×2 (09:40→21:17)
[2016-09-19] MEDS: ASPIRIN 81 MG TAB GTB SCH (09:40)
[2016-09-19] MEDS: METOPROLOL 100 MG TAB GTB SCH ×2 (09:45→23:08)
[2016-09-19] MEDS: NYSTATIN SUSP 5 ML CUP PO SCH ×2 (09:46→21:17)
[2016-09-19] MEDS: THIAMINE 100 MG TAB PO SCH (09:46)
[2016-09-19] MEDS: ENOXAPARIN 40 MG/0.4 ML SYG SC SCH (09:51)
[2016-09-19] MEDS: INSULIN GLARGINE [LANtus] 3 ML PEN SC SCH ×2 (09:57→22:32)
[2016-09-19] MEDS: FAMOTIDINE 20 MG INJ IV SCH ×2 (09:59→21:26)
[2016-09-19] MEDS: CEFEPIME 2GM/50 ML (PMX) 50 ML IVPB SCH ×2 (11:31→21:19)
--- NOTE | 2016-09-19 11:39 | PN ---
DATE: 09/19/2016 SUBJECTIVE: Ms. Werner remains stable in our intensive care unit. Currently, however, tachycardic at 136 to 147, but blood pressure remains stable. PHYSICAL EXAMINATION: VITAL SIGNS: Temperature 98, pulse is 135, blood pressure 100/60, O2 saturation 96% on cool aerosol . NECK: Trach site clean and intact. CARDIAC: S1, S2, no added sounds or murmurs. CHEST: Diminished air entry bilaterally. ABDOMEN: Soft, nontender. No guarding or rebound. EXTREMITIES: No cyanosis, clubbing or edema. NEUROLOGIC: Generalized weakness. LABORATORY DATA: White count 16.9, hemoglobin 12.9, platelets of 249. Sodium 150, BUN 34, creatini ne 0.86. AST, 684 for ALT 97, lactic acid was 3.8. Arterial blood gas pH 7.45, pCO2 of 37, PaO2 of 104. IMPRESSION AND PLAN: 1. Chronic respiratory failure. Continue cool aerosol as tolerated. 2. Transaminitis, possibly shock liver. 3. UTI with severe sepsis. Continue broad-spectrum antibiotic coverage. 4. History of . 5. History of type 2 diabetes. PLAN: 1. Continue cool aerosol. 2. Pulmonary toilet. 3. Aggressive volume resuscitation. 4. Continue broad-spectrum antibiotics. 5. DVT and GI prophylaxis. Dictated By: CARMINA VALERA/REMEDIOS Conf#: [id number] DID#: [id number]
--- NOTE | 2016-09-19 14:24 | PN ---
Date/Time of Note Date/Time of Note DATE: 09/19/16 TIME: 14:22 Assessment/Plan VTE Prophylaxis VTE Prophylaxis Intervention: LMWH Assessment/Plan Chief Complaint/Hosp Course 1. Acute on chronic encephalopathy - 2/2 to #2 - monitor changes, if worsening consider neuro c/s 2. Severe Sepsis - 2/2 UTI - continue with Cefepime -UCx shows Enterococcus 3. Trach dependent respiratory failure - monitor acute changes, consult pulm - low threshold to convert to vent 4. ARF - 2/2 ATN - from #2 - avoid nephrotoxins, renally adjust medications 5. Transaminitis - 2/2 #1 6. Coagulopathy - monitor INR - maintain below 1.5 7. Pressure ulcers - wound consult 8. Type II DM - uncontrolled - moderate ISS, Lantus/novolog, check hgba1c 9. Essential hypertension - hypotensive -Hold Rx 10. Chronic Anemia - monitor H/H 11. Dyslipidemia - hold statin, check Lipid panel 12. Quadriplegia - fall precautions 13. GI ppx - pepcid IV 14. DVT ppx - lovenox Problems: Subjective 24 Hr Interval Summary Subjective hx not possible: pt non-verbal Exam/Review of Systems Vital Signs Vitals Vital Signs Date Time Temp Pulse Resp B/P Pulse Ox O2 Delivery O2 Flow Rate FiO2 09/19/16 13:12 107 09/19/16 06:03 8.0 09/19/16 06:00 30 98/57 100 09/19/16 04:00 98.8 09/19/16 01:26 Aerosol 40 T Tube Intake and Output 09/18/16 09/18/16 09/19/16 15:00 23:00 07:00 Intake Total 200 ml 930 ml 1340 ml Output Total 750 ml 1820 ml 320 ml Balance -550 ml -890 ml 1020 ml Exam Constitutional: non-verbal Respiratory: clear to auscultation Cardiovascular: regular rate and rhythm Gastrointestinal: soft, No distended Musculoskeletal: nl extremities to inspection Results Result Diagram: 09/19/16 0400 09/19/16 0400 Results 24 hrs Laboratory Tests Test 09/18/16 14:24 09/18/16 16:00 09/18/16 17:55 09/18/16 18:07 Bedside Glucose 331 H 346 H Lactic Acid Level 2.5 H 4.1 *H Troponin I 0.079 Test 09/18/16 20:40 09/18/16 21:45 09/19/16 00:49 09/19/16 01:45 Bedside Glucose 249 H 190 Lactic Acid Level 4.8 *H 2.8 H Test 09/19/16 04:00 09/19/16 05:00 09/19/16 05:06 09/19/16 09:43 Alanine Aminotransferase (ALT/SGPT) 97 H Albumin 2.9 L Albumin/Globulin Ratio 0.76 Alkaline Phosphatase 103 Anion Gap 16 Aspartate Amino Transf (AST/SGOT) 684 #H Basophils # 0.0 Basophils % 0.3 Blood Morphology Comment Blood Urea Nitrogen 34 H Calcium Level 8.2 L Carbon Dioxide Level 27 Chloride Level 111 H Creatinine 0.86 Direct Bilirubin 0.00 Eosinophils # 0.0 Eosinophils % 0.0 Globulin 3.80 H Glucose Level 229 H Hematocrit 39.5 L Hemoglobin 12.9 L Indirect Bilirubin 0.3 Lactic Acid Level 3.8 H Lymphocytes # 2.1 Lymphocytes % 12.6 L Mean Corpuscular Hemoglobin 29.4 Mean Corpuscular Hemoglobin Concent 32.6 Mean Corpuscular Volume 90.1 Mean Platelet Volume 11.3 H Monocytes # 0.9 Monocytes % 5.5 Neutrophils # 13.8 H Neutrophils % 81.6 H Nucleated Red Blood Cells # 0.0 Nucleated Red Blood Cells % 0.0 Platelet Count 249 Potassium Level 4.1 Prealbumin 13.3 L Red Blood Count 4.38 L Red Cell Distribution Width 15.3 H Sodium Level 150 H Total Bilirubin 0.3 Total Protein 6.7 # White Blood Count 16.9 H Arterial Blood HCO3 25.8 Arterial Blood Base Excess 2.0 Arterial Blood Oxygen Saturation 98.1 H Rah Test ACCEPTAB Arterial Blood Gas Puncture Site Right Radial Arterial Blood Carboxyhemoglobin 0.6 Arterial Blood Date Drawn 09/19/2016 4:55:42 AM Arterial Blood Methemoglobin 0.3 Arterial Blood pCO2 (Temp correct) 37.4 Arterial Blood pH (Temp corrected) 7.456 H Arterial Blood pO2 (Temp corrected) 104.2 H Blood Gas A-a O2 Differential 138.0 H Blood Gas Modality TRACH COLLAR Blood Gas Notified Time 09/19/2016 5:23:34 AM Blood Gas Notified Whom MM Blood Gas Specimen Source Blood arterial Blood Gas Temperature 37.0 FiO2 40.0 Oxyhemoglobin Percent 97.2 Total Hemoglobin 13.8 Bedside Glucose 216 203 Test 09/19/16 10:30 09/19/16 14:08 Lactic Acid Level 3.6 H Bedside Glucose 113 Medications Medications Current Medications Sodium Chloride (NS) 1,000 ml @ 20 mls/hr Q24H IV Last administered on 20:10; Admin Dose 20 MLS/HR; Start 09/18/16 at 09:58 Ondansetron HCl (Zofran Inj) 4 mg Q6H PRN IV NAUSEA AND/OR VOMITING; Start 07/23 at 10:00 Nitroglycerin (Nitroglycerin (Sl Tab) 0.4 Mg) 1 tab Q5M PRN SL CHEST PAIN; Start 09/18/16 at 10:00 Acetaminophen (Tylenol Supp) 650 mg Q4H PRN [place] PAIN LEVEL 1-3 OR FEVER; Start 09/18/16 at 10:00 Morphine Sulfate (morphine) 2 mg Q4H PRN IV PAIN LEVEL 7-10 Last administered on 09/19/16 06:52; Admin Dose 2 MG; Start 09/18/16 at 10:00 Lorazepam (Ativan) 1 mg Q2H PRN IV ANXIETY; Start 09/18/16 at 10:00 Bisacodyl (Dulcolax Supp) 10 mg DAILY PRN [place] CONSTIPATION; Start 09/18/16 at 10 :00 Famotidine (Pepcid Iv) 20 mg Q12 IV Last administered on 09/19/16 09:59; Admin Dose 20 MG; Start 09/18/16 at 21:00 Enoxaparin Sodium 40 mg 40 mg DAILY SC Last administered on 09/19/16 09:51; Admin Dose 40 MG; Start 09/19/16 at 09:00 Cefepime HCl (Maxipime 2gm/50 ml (Pmx)) 50 ml @ 100 mls/hr Q12 IVPB Last administered on 09/19/16 11:31; Admin Dose 100 MLS/HR; Start 09/18/16 at 21:00 Insulin Aspart (Novolog Insulin Pen) NOVOLOG *MODERATE* ALGORI... Q4 SC Last administered on 09/19/16 10:09; Admin Dose 4 UNIT; Start 09/18/16 at 13:00 Aspirin (Aspirin) 81 mg DAILY GTB Last administered on 09/19/16 09:40; Admin Dose 81 MG; Start 09/19/16 at 09:00 Gemfibrozil (Lopid) 600 mg BID PO Last administered on 09/19/16 09:40; Admin Dose 600 MG; Start 09/18/16 at 21:00 Insulin Glargine (Lantus) 30 unit BID SC Last administered on 09/19/16 09:57; Admin Dose 30 UNIT; Start 09/18/16 at 21:00 Lansoprazole (Prevacid) 30 mg DAILY@06 GTB Last administered on 09/19/16 05:05 ; Admin Dose 30 MG; Start 09/19/16 at 06:00 Magnesium Hydroxide (Milk Of Mag) 30 ml DAILY PRN PO CONSTIPATION; Start at 11:00 Metoprolol Tartrate (Lopressor) 100 mg BID GTB Last administered on 09/19/16 09:45; Admin Dose 100 MG; Start 09/18/16 at 21:00 Nystatin (Nystatin Susp) 5 ml Q12 PO Last administered on 09/19/16 09:46; Admin Dose 5 ML; Start 09/18/16 at 21:00 Thiamine HCl (Vitamin B1) 100 mg DAILY PO Last administered on 09/19/16 09:46 ; Admin Dose 100 MG; Start 09/19/16 at 09:00 Tramadol HCl (Ultram) 50 mg DAILY PRN GTB SEVERE PAIN LEVEL 7-10; Start at 11:00 Miscellaneous Information 1 ea NOTE XX ; Start 09/18/16 at 11:00 Glucose (Glutose) 15 gm Q15M PRN PO DECREASED GLUCOSE; Start 09/18/16 at 11:00 Glucose (Glutose) 22.5 gm Q15M PRN PO DECREASED GLUCOSE; Start 09/18/16 at 11: 00 Dextrose (D50w Syringe) 25 ml Q15M PRN IV DECREASED GLUCOSE; Start 09/18/16 at 11:00 Dextrose (D50w Syringe) 50 ml Q15M PRN IV DECREASED GLUCOSE; Start 09/18/16 at 11:00 Glucagon (Glucagen) 1 mg Q15M PRN IM DECREASED GLUCOSE; Start 09/18/16 at 11:00 Glucose 15 gm 15 gm Q15M PRN BUCCAL DECREASED GLUCOSE; Start 09/18/16 at 11:00 Lactated Ringer's 1,000 ml @ 200 mls/hr Q5H IV Last administered on 09/19/16t 11:32; Admin Dose 200 MLS/HR; Start 09/18/16 at 14:30 Norepinephrine/ Dextrose (Levophed/D5W) 500 ml @ 0 mls/hr TITRATE IV ; Start 07/23 at 23:00 TJ SOLIS Sep 19, 2016 14:24
[2016-09-19] MEDS ORDERED: VANCOMYCIN IV PER PHARMACY XX SCH (16:00)
[2016-09-19] MEDS: VANCOMYCIN 2 GM in SOD CHLORIDE 0.9% 500 ML IVPB SCH ×2 (17:23→17:35)
[2016-09-19] MEDS ORDERED: VANCOMYCIN 1.5 GM in SOD CHLORIDE 0.9% 250 ML IVPB SCH (18:00)
--- NOTE | 2016-09-19 18:39 | CONS ---
DATE OF ADMISSION: 09/18/2016 DATE OF CONSULTATION: 09/19/2016 TYPE OF CONSULTATION: Infectious Disease. REASON FOR CONSULTATION: Antibiotic management. HISTORY OF PRESENT ILLNESS: Andrew Werner is an unfortunate 55-year-old male with numerou s problems, who is admitted now with supposedly a change in mentation. His past problems include: 1. Chronic encephalopathy. 2. Status post tracheostomy. 3. Status post G-tube placement. 4. Pressure ulcers. 5. Adult-onset diabetes mellitus. 6. Hyperlipidemia. 7. Hypertension. 8. Quadriplegia. 9. Anemia of chronic disease. The patient presents now with as noted a change in mentation and a t emperature of 102 degrees axillary. On admission, his white count was 15.1, H and H of 14.3 and 43. 2, platelet count 296,000. BUN and creatinine 50/1.19, glucose of 306. PAST MEDICAL HISTORY: PAST SURGICAL HISTORY: Status post appendectomy, status post cholecystectomy, status post craniotom y, status post tracheostomy, status post G-tube placement. FAMILY HISTORY: Noncontributory. SOCIAL HISTORY: He does not smoke, drink, or abuse drugs. [facility] lives in a [facility] facility. ALLERGIES: NONE TO PENICILLIN, SULFA, OR FOODS. MEDICATIONS: Per chart. REVIEW OF SYSTEMS: As per HPI. PHYSICAL EXAMINATION: GENERAL: The patient is a chronically ill-appearing male who is obtunded, on a respirator, has an E T tube. VITAL SIGNS: He has a tracheostomy. He has a G-tube, he has a Carmona catheter, and he has a central line. SKIN: Without generalized rash. HEAD: Craniotomy scar present. EENT: Within normal limits. NECK: Supple. Tracheostomy in place with copious secretions. LYMPH NODES: None palpable. CHEST: Decreased breath sounds at the bases. HEART: Without murmur or gallop. ABDOMEN: Soft, nontender. G-tube in place without induration or discharge. EXTREMITIES: Without cyanosis, clubbing, or edema. RECTAL AND GENITAL: Deferred. NEUROLOGIC: The patient is obtunded. Has a history of quadriplegia. IMPRESSION AND PLAN: Patient was started on vancomycin and cefepime. He received vancomycin once. His cathed urine is growing enterococcus species and, I believe, gram-negative rods, which have not been identified. Blood cultures are negative. Chest x-ray: right-sided PICC line, tracheostomy, minimal bibasilar atelectasis, surgical clips are within the gallbladder fossa from prior cholecyste ctomy. DJD is seen. Will continue him on vancomycin, pharmacy to dose, and his cefepime, and await the culture results. Dictated By: JAYME STEIN MD, JD/REMEDIOS Conf#: [id number] DID#: [id number]
[2016-09-20] VITALS (23 sets, daily range): BP systolic 86–126; BP diastolic 52–71; PULSE 78–103; RESP 17–29
[2016-09-20] MEDS: INSULIN ASPART [NOVOLOG] 3 ML PEN SC SCH ×3 (01:00→13:00)
[2016-09-20] MEDS: ALBUTEROL/IPRATROPIUM (NEB) 3 ML AMP HHN SCH ×3 (01:45→14:18)
[2016-09-20] MEDS: LACTATED RINGER'S 1,000 ML IV SCH ×3 (03:30→11:30)
[2016-09-20] MEDS ORDERED: VANCOMYCIN 1.25 GM in SOD CHLORIDE 0.9% 250 ML IVPB SCH ×2 (05:00→06:00)
[2016-09-20 05:04] LABS: BASOPHILS % 0.4 % (0.0-2.0); EOSINOPHILS # 0.1 10^3/ul (0.0-0.5); EOSINOPHILS % 0.8 % (0.0-7.0); HEMOGLOBIN 10.7 g/dl (14.0-18.0); LYMPHOCYTES # 1.8 10^3/ul (0.8-2.9); LYMPHOCYTES % 16.1 % (15.0-51.0); MEAN CORPUSCULAR HEMOGLOBIN 30.1 pg (29.0-33.0); MEAN CORPUSCULAR HGB CONC 33.3 g/dl (32.0-37.0); MEAN CORPUSCULAR VOLUME 90.2 fl (82.0-101.0); MEAN PLATELET VOLUME 11.4 fl (7.4-10.4); MONOCYTE # 0.5 10^3/ul (0.3-0.9); MONOCYTES % 4.8 % (0.0-11.0); NEUTROPHIL # 8.5 10^3/ul (1.6-7.5); NEUTROPHILS % 77.9 % (39.0-77.0); PLATELET COUNT 173 10^3/UL (140-440); RED BLOOD COUNT 3.55 10^6/ul (4.70-6.10); RED CELL DISTRIBUTION WIDTH 15.1 % (11.5-14.5); UNCORRECTED WBC 10.9 10^3/ul (4.8-10.8); WHITE BLOOD COUNT 10.9 10^3/ul (4.8-10.8)
[2016-09-20 05:07] LABS: CONDITION 1; LH ANALYZER COMMENTS 1
[2016-09-20 05:38] LABS: ALBUMIN 2.7 g/dl (3.3-4.9); POTASSIUM 3.7 mmol/L (3.5-5.1)
[2016-09-20 05:40] LABS: CREATININE 0.62 mg/dl (0.61-1.24)
[2016-09-20 05:41] LABS: ALBUMIN/GLOBULIN RATIO 0.75; BILIRUBIN,INDIRECT 0.3 mg/dl (0-1.1); BILIRUBIN,TOTAL 0.3 mg/dl (0.2-1.3); CALCIUM 8.3 mg/dl (8.4-10.2); TOTAL PROTEIN 6.3 g/dl (6.1-8.1)
[2016-09-20] MEDS: LANSOPRAZOLE 30 MG CAP GTB SCH (05:41)
[2016-09-20] MEDS: GEMFIBROZIL 600 MG TAB PO SCH (08:57)
[2016-09-20] MEDS: ASPIRIN 81 MG TAB GTB SCH (08:57)
[2016-09-20] MEDS: THIAMINE 100 MG TAB PO SCH (08:57)
[2016-09-20] MEDS: NYSTATIN SUSP 5 ML CUP PO SCH (08:58)
[2016-09-20] MEDS: ENOXAPARIN 40 MG/0.4 ML SYG SC SCH (09:03)
[2016-09-20] MEDS: CEFEPIME 2GM/50 ML (PMX) 50 ML IVPB SCH (09:05)
[2016-09-20] MEDS: FAMOTIDINE 20 MG INJ IV SCH (09:05)
[2016-09-20] MEDS: METOPROLOL 100 MG TAB GTB SCH (09:20)
[2016-09-20] MEDS: INSULIN GLARGINE [LANtus] 3 ML PEN SC SCH (09:28)
[2016-09-20] MEDS: SOD CHLORIDE 0.9% 1,000 ML IV SCH (09:58)
--- NOTE | 2016-09-20 11:38 | PN ---
DATE: 09/20/2016 SUBJECTIVE: Mr. Werner remains stable, minimally responsive on cool aerosol. VITAL SIGNS: Temperature 99, pulse is 89, blood pressure 117/____, O2 saturation 96% on 35% cool ae rosol. NECK: Trach site clean and intact. CARDIAC: S1, S2, no added sounds or murmurs. CHEST: Diminished air entry bilaterally with few rales. ABDOMEN: Soft, nontender. No guarding or rebound. EXTREMITIES: No cyanosis, clubbing, edema. NEUROLOGIC: Generalized weakness. LABORATORY DATA: White count 10.9, hemoglobin 10.7, platelets 173, BUN 16, creatinine 0.62. IMPRESSION AND PLAN: 1. Chronic respiratory failure, currently stable. 2. Enterococcal urinary tract infection, clinically improved. 3. Transaminitis, resolving for acute tubular necrosis injury. 4. Dysphagia with G-tube. Continue as tolerated. DISPOSITION: The patient is stable, to return [facility] from a pulmonary standpoi nt. Dictated By: CARMINA VALERA/REMEDIOS Conf#: [id number] DID#: [id number]
--- NOTE | 2016-09-20 11:40 | PN ---
DATE: 09/20/2016 SUBJECTIVE: No acute changes. The patient is lying comfortably in bed. He is nonverbal, noncommun icative, and afebrile. VITAL SIGNS: T-max 102, to T-current 99, pulse 89, respirations 24, blood pressure 117/69, saturati on 100 WBC today 10.9, H and H 10.7 and 32, platelets 173,000, neutrophils 77.9. No bands. BUN 16, creati nine 0.62. MICROBIOLOGY: Urine culture on 09/18/2016 grew enterococcus species and Pseudomonas aeruginosa. ALLERGIES: NONE. INDWELLINGS: The patient has trach, PEG, Carm[place]. PICC line placed on 09/18/2016. DIAGNOSTICS: Chest x-ray revealed mild bibasilar subsegmental atelectasis. ANTIMICROBIALS: The patient is on 1. IV vancomycin. 2. Cefepime. PHYSICAL EXAMINATION: GENERAL: Chronically ill-appearing, middle-aged man who is nonverbal, noncommunicative, ly ing comfortably in bed. HEENT: Head atraumatic, normocephalic. Sclerae anicteric. Buccal mucosa dry. NECK: Supple. Tracheostomy present. CHEST: Rise symmetrical. Breath sounds diminished to bases. HEART: S1, S2. ABDOMEN: Obese, soft, bowel tones present. EXTREMITIES: No cyanosis. Bilateral trace edema. ASSESSMENT: 1. Severe sepsis. 2. Polymicrobial urinary tract infection. 3. Chronic respiratory failure with pulmonary edema on admission, rule out aspiration. 4. Chronic encephalopathy. 5. Diabetes mellitus. 6. Functional quadriplegia. PLAN: The patient remains unchanged. No fevers overnight. He is covered with appropriate antimicr obials which we are going to continue. Follow recommendations of consultants. Dictated By: DANGELO HUNT RFID ENGINEER for JAYME MILLER/REMEDIOS Conf#: [id number] DID#: [id number]
[2016-09-20] MEDS ORDERED: CEPH250S33 PEG (14:05)
--- NOTE | 2016-09-20 14:34 | RADRPT ---
Vent Rate: 135 bpm RR Interval: 0 msec MD Interval: 118 msec QRS Duration: 70 msec QT Interval: 308 msec QTC Interval: 462 msec P-R-T Mobile: 46 - 105 - -34 degrees Sinus tachycardia Rightward axis ST amp; T wave abnormality, consider inferolateral ischemia Abnormal ECG Electronically Signed By: Edouard Sales [id number]
--- NOTE | 2016-09-20 18:08 | DS ---
DATE OF ADMISSION: 09/18/2016 DATE OF DISCHARGE: 09/20/2016 DISCHARGE DIAGNOSES: 1. Acute on chronic encephalopathy secondary to sepsis from urinary tract infection, now improved. Discharge with p.o. antibiotics. 2. 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 Discharge back to assisted facility. 3. Pressure ulcers secondary to debility and bedbound status. 4. Type 2 diabetes. Continue home meds. 5. Quadriplegia with debility. Discharge to assisted facility. HOSPITAL COURSE: The patient is a 55-year-old male with a history of chronic encephalopathy, pressu re ulcer, status post tracheostomy and PEG, hypertension, quadriplegia, chronic anemia. The patient presents with reported altered mentation from the residential. The patient was found to have maryjane re sepsis secondary to UTI. The patient was put on IV antibiotics, was seen by ID. The patient's u rine culture showed enterococcus species as well as pseudomonas. The patient's sepsis did stabilize . The patient was seen by pulmonology and was felt to be stable for discharge. Per groutman, the patient was to be discharged back to SNF. Will continue course of antibiotics. On date of disc harge, the patient's vitals, labs, physical exam were stable. No acute issues. CONDITION ON DISCHARGE: Stable. DISPOSITION: To assisted facility. MEDICATIONS: The patient is to continue usual home medications and was given Keflex 500 mg via the PEG q.8h. for 7 days. Once again, the patient is to continue residential medications. FOLLOWUP: The patient is to follow up with physicians at the assisted facility. Greater than 30 minutes was spent coordinating the discharge of this patient. Dictated By: TJ SOLIS MD BS/NTS Conf#: [id number] DID#: [id number]
== END 2016-09-20 16:30 | DRG 871 ==
LOC: E/R 07:45 → ICU 10:02
PROVIDERS: ADMIT Student in an Organized Health Care Education/Training Program; ATTEND Student in an Organized Health Care Education/Training Program
PROC: 02HV33Z Insertion of Infusion Device into Superior Vena Cava, Percutaneous Approach (ICD-10-PCS; principal; 2016-09-18)
DX: R65.20 Severe sepsis without septic shock (principal); G93.40 Encephalopathy, unspecified; G82.50 Quadriplegia, unspecified; J96.10 Chronic respiratory failure, unspecified whether with hypoxia or hypercapnia; N17.9 Acute kidney failure, unspecified; N39.0 Urinary tract infection, site not specified; R41.82 Altered mental status, unspecified; L89.90 Pressure ulcer of unspecified site, unspecified stage; E11.9 Type 2 diabetes mellitus without complications; D64.9 Anemia, unspecified; E78.5 Hyperlipidemia, unspecified; Z93.0 Tracheostomy status; R79.89 Other specified abnormal findings of blood chemistry; Z74.01 Bed confinement status
CPT/HCPCS: 36415; 36569; 36600; 71010; 76937; 80048; 80053; 80061; 81001; 81003; 82803; 82962; 83036; 83605; 83615; 83735; 84134; 84443; 84484; 85025; 85610; 85730; 87040; 87081; 87086; 93005; 93306; 94640; 94664; 96374; 96375; J1650; J1815; J1940; J2060; J2270; J3370; J7030; J7040; J7050; J7120

== ENCOUNTER 2017-01-12 18:59 | Inpatient (IN) | payer MEDICARE, OTHER ==
[~2017-01-12] VITALS: Ht 167.6 cm; Wt 80.0 kg
[~2017-01-12 18:59] MED LIST changes: +ACET-2047 GTB; +ALBU2.5V3 NEB; +ASCO500S2 GTB; +BISA10SU75 PR; -CEFE1FRO IV; +CEPH250S33 PEG; +CHLO473M4 MM; +CYAN100 GTB; +DEXT15DR4 BOTH EYES; +DOCU-159 GTB; +ENOX40DI2 SC; +FERR220S3 GTB; -FLUC100T39 GTB; -FLUC100T39 PO; +FOLI-49 GTB; +INSU300I SQ; +IPRA3AMP INHALATION; -LOV40I SC; +MULT9LIQ4 GTB; +ZINC220T GTB
[2017-01-12 19:00] VITALS: Ht 167.6 cm; Wt 80.0 kg
[2017-01-12] MEDS ORDERED: ACETAMINOPHEN 650 MG SUPP PR STA (19:38)
[2017-01-12] MEDS ORDERED: CEFEPIME 2GM/50 ML (PMX) 50 ML IVPB STA (19:38)
[2017-01-12] MEDS ORDERED: NORepinephrine 8MG/250 ML (PMX 250 ML IV STA (19:38)
[2017-01-12] MEDS ORDERED: SODIUM CHLORIDE 0.9% 1L BAG IV* STA (19:38)
--- NOTE | 2017-01-12 19:38 | ERA ---
ER Documentation Chief Complaint Date/Time DATE: 01/12/17 TIME: 19:28 Chief Complaint HPI 56-year-old man with multiple medical conditions brought in by EMS from half-way post cardiac arrest. They administered epinephrine via an intraosseous line EMS established at the scene. HPI was obtained by speaking to EMS, reviewing half-way records, reviewing past medical records, and speaking to nursing staff. ROS All systems reviewed and are negative except as per history of present illness. Medications Home Meds Active Scripts Cephalexin* (Cephalexin* Susp) 250 Mg/5 Ml Susp.recon, 500 MG PEG Q8 for 7 Days , #1 BOTTLE Prov:WILLTJ 09/20/16 Nystatin* (Mycostatin*) 5 Ml Susp, 5 ML PO Q12 for 14 Days Prov:DIANA PAYNE NP 01/23/16 Lansoprazole* (Lansoprazole*) 30 Mg Capsule.dr, 30 MG GTB DAILY@06 for 30 Days Prov:DIANA PAYNE NP 01/23/16 Ipratropium-Albuterol (Ipratropium-Albuterol) 0.5-3 Mg/3 Ml Ampul.neb, 3 ML HHN Q6H RESP THERAPY for 30 Days Prov:DIANA PAYNE NP 01/23/16 Insulin Glargine* (Lantus*) 100 Unit/Ml Soln, 30 UNIT SC BID for 30 Days Prov:DIANA PAYNE NP 01/23/16 Insulin Aspart* (Novolog Insulin Pen*) 100 Unit/Ml Soln, 0 UNIT SC Q6 for 30 Days Prov:DIANA PAYNE NP 01/23/16 Enoxaparin Sodium* (Enoxaparin Sodium*) 40 Mg/0.4 Ml Syringe, 40 MG SC DAILY for 30 Days Prov:DIANA PAYNE NP 01/23/16 Aspirin (Aspirin) 81 Mg Chew, 81 MG GTB DAILY for 30 Days, TAB Prov:DIANA PAYNE NP 01/23/16 Reported Medications Zinc Sulfate* (Zinc Sulfate*) 220 Mg Tablet, 220 MG GTB DAILY, TAB 09/18/16 Ascorbic Acid* (Ascorbic Acid*) 500 Mg/5 Ml Syrup, 500 MG GTB DAILY, #300 ML 09/18/16 Cyanocobalamin* (Vitamin B12*) 100 Mcg Tab, 100 MCG GTB DAILY, TAB 09/18/16 Acetaminophen* (Acetaminophen*) 650 Mg Tablet, 650 MG GTB Q4 Y for PAIN AND OR ELEVATED TEMP, #30 TAB 09/18/16 Insulin Glargine,Hum.rec.anlog (Radha Armstrongmargueritejenn) 300 Unit/1 Ml Insuln.pen, 62 UNIT SQ Q12 09/18/16 Multivit &Minerals/Ferrous Fum (MULTIVITAMIN LIQUID) 9 Mg/15 Ml Liquid, 18 MG GTB DAILY 09/18/16 Folic Acid* (Folic Acid*) 1 Mg Tablet, 1 MG GTB DAILY, TAB 09/18/16 Ferrous Sulfate (Ferrous Sulfate) 220 Mg/5 Ml Elixir, 330 MG GTB DAILY, BOTTLE 09/18/16 Bisacodyl* (Bisacodyl*) 10 Mg Supp, 10 MG IA DAILY Y for CONSTIPATION, SUPP 09/18/16 Docusate Sodium* (Docusate Sodium*) 100 Mg Capsule, 100 MG GTB QHS, #30 CAP 09/18/16 Chlorhexidine Gluconate (Peridex) 473 Ml Mouthwash, 15 ML MM Q12, BOTTLE 09/18/16 Ipratropium-Albuterol (Ipratropium-Albuterol) 0.5-3 Mg/3 Ml Ampul.neb, 3 ML INHALATION Q6 Y for WHEEZING AND SOB, #30 VIAL 09/18/16 Dextran 70/Hypromellose (Artificial Tears Eye Drops) 15 Ml Drops, 1 DROP BOTH EYES BID, BOTTLE 09/18/16 Albuterol Sulfate* (Albuterol Sulfate* Neb) 0.083%-3 Ml Neb, 2.5 MG NEB Q3H Y for WHEEZING AND SOB, #30 VIAL 09/18/16 Tramadol Hcl* (Ultram*) 50 Mg Tablet, 50 MG GTB DAILY Y for SEVERE PAIN LEVEL 7- 10, TAB 01/17/16 Cran/Vitc/Mannose/Inulin/Brom (Uti-Stat Liquid) 3,875 Mg/30 Ml Liquid, 3875 MG GTB BID 01/17/16 Gemfibrozil* (Gemfibrozil*) 600 Mg Tablet, 600 MG GTB BID, TAB 01/17/16 Thiamine* (Thiamine*) 100 Mg Tablet, 100 MG PO DAILY, TAB 01/09/16 Magnesium Hydroxide* (Milk Of Magnesia*) 400 Mg/5 Ml Oral.susp, 30 ML PO DAILY Y for CONSTIPATION, ML 01/09/16 Metformin* (Glucophage*) 500 Mg Tab, 500 MG GTB BID WITH MEALS, #30 TAB 01/09/16 Metoprolol Tartrate* (Lopressor*) 100 Mg Tablet, 100 MG GTB BID for HOLD FOR SBP <110,HR<60, #60 TAB 01/09/16 Na Phos,M-B/Na Phos,Di-Ba* (Fleet* Enema) 118 Ml Enema, 118 ML IA Q48H Y for CONSTIPATION, ENEMA 01/09/16 Allergies Allergies: Coded Allergies: No Known Allergy (Unverified , 01/12/17) PMhx/Soc chronic encephalopathy, pressure ulcer, status post tracheostomy and PEG, hypertension, quadriplegia, chronic anemia. History of Surgery: Yes (CRANIOTOMY) Hx Neurological Disorder: Yes (TRAUMATIC BRAIN INJURY. CHRONIC ENCEPHALOPATHY. QUADRIPLEGIC) Hx Respiratory Disorders: Yes (RESP. FAILURE. TRACH ) Hx Psychiatric Problems: No Hx Miscellaneous Medical Probl: Yes (HYPERNATREMIA, CHRONIC ENCEPHALOPATHY, QUADRIPLEGIC) Hx Substance Use: No (UNABLE TO OBTAIN DUE MENTAL STATUS) Hx Tobacco Use: No (UNABLE TO OBTAIN DUE MENTAL STATUS) FmHx Family History: diabetes Physical Exam Vitals Per nurse's note Physical Exam GENERAL: Elderly, chronically debilitated man, appears emaciated and unresponsive, febrile HEENT: Dry mucous membranes, pale conjunctiva, no cervical spine deformity, pupils fixed dilated, tracheostomy in place NEURO: Nonverbal, unresponsive, pupils fixed dilated, no facial asymmetry CARDIAC: No pulses palpated, no heart sounds auscultated LUNGS: Clear breath sounds, no wheezing or stridor, apneic ABDOMEN: Soft nontender, no masses palpated, PEG tube in place SKIN: Hot to touch, dry, no lacerations or hematomas, chronic skin changes apparent EXTREMITIES: No clubbing cyanosis or edema, calves are bilaterally symmetrical PSYCH: Unable to assess Result Diagram: 01/12/17192901/12/171929 Results 24 hrs Laboratory Tests Test 01/12/17 19:30 White Blood Count 16.110^3/ul Red Blood Count 4.3210^6/ul Hemoglobin 12.7g/dl Hematocrit 44.5% Mean Corpuscular Volume 103.0fl Mean Corpuscular Hemoglobin 29.4pg Mean Corpuscular Hemoglobin Concent 28.5g/dl Red Cell Distribution Width 15.2% Platelet Count 45771^3/UL Mean Platelet Volume 14.0fl Prothrombin Time Pending Prothrombin Time Ratio 1.7 INR International Normalized Ratio 1.89 Activated Partial Thromboplast Time Pending Urine Color BROWN Urine Clarity SLIGHTLY CLOUDY Urine pH 6.0 Urine Specific [place] >=1.030 Urine Ketones NEGATIVE Urine Nitrite NEGATIVE Urine Bilirubin NEGATIVE Urine Urobilinogen 0.2 E.U./dL Urine Leukocyte Esterase 2+ Urine Microscopic RBC Pending Urine Microscopic WBC Pending Urine Hemoglobin 3+ Urine Glucose NEGATIVE% Urine Total Protein 4+ Sodium Level 148mmol/L Potassium Level 4.7mmol/L Chloride Level 105mmol/L Carbon Dioxide Level 14mmol/L Anion Gap 34 Blood Urea Nitrogen 50mg/dl Creatinine 1.99mg/dl Glucose Level 473mg/dl Lactic Acid Level > 24.0mmol/L Calcium Level 11.7mg/dl Total Bilirubin 0.1mg/dl Direct Bilirubin 0.00mg/dl Indirect Bilirubin 0.1mg/dl Aspartate Amino Transf (AST/SGOT) Pending Alanine Aminotransferase (ALT/SGPT) 529IU/L Alkaline Phosphatase 152IU/L Troponin I 0.164ng/ml Total Protein 7.3g/dl Albumin 3.8g/dl Globulin 3.50g/dl Albumin/Globulin Ratio 1.08 Lipase 485U/L Current Medications Medications (Trade) Dose Ordered Sig/Shirley Route PRN Reason Start Time Stop Time Status Last Admin Dose Admin Sodium Chloride (NS) 6,000 ml BOLUS OVER 2 HOURS STAT IV* 01/12/17 19:38 01/12/17 19:40 DC Acetaminophen 650 mg 650 mg ONCE STAT IA 01/12/17 19:38 01/12/17 19:40 DC Norepinephrine 250 ml @ 7.5 mls/hr ONCE STAT IV 01/12/17 19:38 01/14/17 04:57 Cefepime HCl 50 ml @ 100 mls/hr ONCE STAT IVPB 01/12/17 19:38 01/12/17 20:07 DC Vancomycin HCl (Vancocin) 250 ml @ 125 mls/hr ONCE ONCE IVPB 01/12/17 20:00 6/8/17 21:59 Procedures/MDM Immediate ACLS was started with high-quality chest compressions. Patient was given multiple doses of epinephrine intravenously, sodium bicarbonate, and calcium. Please refer to resuscitation log for full list of medications, times , dosages. Patient had multiple rounds of resuscitation, and most prevalent rhythm was ventricular fibrillation although he did have episodes of pulseless electrical activity and ventricular tachycardia which also required defibrillation. Please refer to resuscitation logs for full report. EKG post cardiac arrest and resuscitation reveals a atrial couplets of 76 bpm, right axis deviation, and diffuse ST wave depressions with a right bundle branch block, QRS duration 120ms Central Line Placement by me: Patient consented, sterilely draped, full prep, gown, glove, mask, time out performed. Anesthesia: 1% lidocaine locally Location: Left femoral vein Device: Multiple lumen Technique: Seldinger technique. Secured with suture. Results: Venous return from all ports with easy saline flush. No complications. The entire Guide wire retrieved and disposed of. One view chest x-ray performed, read by me reveals a tracheostomy in place, cardiomegaly and bilateral pulmonary vascular congestion worse on the right, possible early right middle lobe infiltrate also noted. Patient's infectious symptoms and hemodynamics have not stabilized and the patient is at risk for continued cardiac arrest. The patient will be admitted. Rectal temperature was 105F. Severe Sepsis Assessment: Infectious Source: Urinary tract infection End organ damage indicated by: Cardiac arrest and respiratory failure Severe Sepsis Managment: Blood Cultures X 2 before broad spectrum antibiotics initiated within 3 hours of recognition. 30 ml/kg NS bolus Completed Initial Lactate: Elevated Repeat Lactate elevated Critical Care: Time: 45 minutes, this was time separate from other procedures Treatments/Evaluations: Emergent fluid management, while maintaining close respiratory support. Immediate broad spectrum antibiotic therapy. Simultaneous assessment for possible sources in order to direct therapy. Consideration for invasive and chemical support to prevent respiratory or cardiac collapse. Septic Shock Assessment (1 hour post 30 ml/kg fluid bolus): Hypotension (SBP < 90 or 40 mmHg drop, MAP < 65): Yes Lactic acid > 4.0 yes Perfusion Reassessment for Septic Shock: Temp 105F, pulse 60 bpm, respiratory rate patient is on mechanical ventilator, BP 60/40 mmHg Heart Exam: Regular rate rhythm Lung Exam: Poor breath sounds bilaterally Capillary Refill: Delayed Peripheral Pulses: Femoral pulses present Skin: Mottled, pale Hypotensive Treatment (not required for isolated lactic acid elevation): Comfort Care: No Central LIne: Left femoral vein Vasopressor started: Norepinephrine and dopamine drip I considered further perfusion assessment with CVP measurement, SCVO2, bedside ultrasound volume assessment, passive leg raise, trial of further fluid bolus. And preceded with aggressive IV fluid hydration, IV antibiotics, and IV pressor medication Patient was treated here with over 6 L of normal saline intravenously post resuscitation and given cefepime 2 g IV and vancomycin 1 g IV. An NG tube was passed and about 500 cc of bright red blood was suctioned, irrigating with normal saline cleared the aspirate there was no active bleeding although given his history of anemia and recent cardiac arrest I did transfuse him 1 unit of O- blood as patient's initial CBC was not yet available. CBC revealed leukocytosis of 16, hemoglobin hematocrit within normal limits, electrolytes revealed hyperglycemia and dehydration with a BUN/creatinine of 50/ 2, liver function tests were unremarkable, troponin positive at 0.16, INR elevated, lactic acid elevated at 24 consistent with septic shock and cardiac arrest with resuscitation, urine analysis positive for infection. Patient was also treated with octreotide 50 mcg bolus followed by an octreotide drip for upper GI bleed. He is also currently on cardiac pressor medications including norepinephrine and dopamine. I obtained emergent consultation with Dr. Allan investment banker regarding the patient's upper gastrointestinal bleeding and recent cardiac arrest. Accepting Care Team: Current data and ongoing care discussed. Time: Time of admission Primary Provider: Hospitalist Consulting: Cardiology, pulmonology, infectious disease, gastroenterology Outstanding Data: none Departure Diagnosis: Primary Impression: Cardiac arrest Additional Impressions: Septic shock Cardiogenic shock Pulmonary edema Qualified Code: J81.0 - Acute pulmonary edema UTI (urinary tract infection) Qualified Code: N30.00 - Acute cystitis without hematuria Acute encephalopathy Gastrointestinal hemorrhage Qualified Code: K29.01 - Gastrointestinal hemorrhage associated with acute gastritis Elevated troponin Condition: Critical SAMIR KABA MD Jan 12, 2017 19:38
[2017-01-12 19:57] LABS: ADD SCAN DIFF NO
[2017-01-12 19:59] LABS: ABNORMAL IP MESSAGE 1; HEMATOCRIT 44.5 % (42.0-52.0); HEMOGLOBIN 12.7 g/dl (14.0-18.0); MEAN CORPUSCULAR HEMOGLOBIN 29.4 pg (29.0-33.0); MEAN CORPUSCULAR HGB CONC 28.5 g/dl (32.0-37.0); PLATELET COUNT 225 10^3/UL (140-415); RED BLOOD COUNT 4.32 10^6/ul (4.70-6.10); RED CELL DISTRIBUTION WIDTH 15.2 % (11.5-14.5); WHITE BLOOD COUNT 16.1 10^3/ul (4.8-10.8)
[2017-01-12] MEDS ORDERED: CEFEPIME 1GM/50 ML (PMX) 50 ML IVPB SCH (20:00)
[2017-01-12] MEDS ORDERED: VANCOMYCIN 1 GM (PMX) 250 ML IVPB ONE (20:00)
[2017-01-12 20:14] LABS: ADD UMIC YES; ALBUMIN 3.8 g/dl (3.3-4.9); ALBUMIN/GLOBULIN RATIO 1.08; BILIRUBIN,INDIRECT 0.1 mg/dl (0-1.1); BILIRUBIN,TOTAL 0.1 mg/dl (0.2-1.3); CALCIUM 11.7 mg/dl (8.4-10.2); CREATININE 1.99 mg/dl (0.61-1.24); POTASSIUM 4.7 mmol/L (3.5-5.1); TOTAL PROTEIN 7.3 g/dl (6.1-8.1); URINE BILIRUBIN (Dip) NEGATIVE (NEGATIVE); URINE BLOOD (Dip) 3+ (NEGATIVE); URINE COLOR BROWN (YELLOW); URINE GLUCOSE (Dip) NEGATIVE (NEGATIVE); URINE KETONES (Dip) NEGATIVE (NEGATIVE); URINE LEUKOCYTE ESTERASE (Dip) 2+ (NEGATIVE); URINE NITRITE (Dip) NEGATIVE (NEGATIVE); URINE TOTAL PROTEIN (Dip) 4+ (NEGATIVE); URINE UROBILINOGEN (Dip) 0.2 E.U./dL (0.1-1.0)
[2017-01-12 20:21] LABS: INR 1.89; PROTIME 21.9 Sec (12.2-14.2); PT RATIO 1.7
[2017-01-12 20:31] LABS: TROPONIN-I 0.164 ng/ml (0.00-0.12)
[2017-01-12] MEDS ORDERED: OCTREOTIDE 50 MCG in SOD CHLORIDE 0.9% 25 ML IVPB STA (20:33)
[2017-01-12] MEDS ORDERED: OCTREOTIDE 500 MCG in SOD CHLORIDE 0.9% 49 ML IV STA (20:33)
[2017-01-12 20:34] LABS: EOSINOPHILS # 0.2 10^3/ul (0.0-0.5); LYMPHOCYTES # 4.7 10^3/ul (0.8-2.9); MONOCYTE # 0.3 10^3/ul (0.3-0.9); MYELOCYTES # 0.2; NEUTROPHIL # 9.8 10^3/ul (1.6-7.5)
[2017-01-12 20:35] LABS: PARTIAL THROMBOPLASTIN TIME 74.6 Sec (25.0-35.0)
[2017-01-12 20:36] LABS: PLATELET ESTIMATE PLT APPEAR ADEQUATE
--- NOTE | 2017-01-12 20:36 | RADRPT ---
PROCEDURE: XR Chest AP portable CLINICAL INDICATION: Possible sepsis TECHNIQUE: An AP portable radiograph of the chest was submitted. COMPARISON: 09/19/2016 FINDINGS: Support Hardware: The tracheostomy to is stable in positioning of the right upper extremity PICC cat heter is no longer identified. Cardiovascular: The heart remains mildly enlarged while the pulmonary vasculature is upper normal. Lung Pearce: There is improved aeration of the left lower lobe and persistent streaky infiltrate dis coid atelectasis of the right lung base. Pleural Spaces: No pneumothorax or pleural effusion is identified. Osseous Structures: Moderate degenerative spine changes are noted. Soft Tissues: The soft tissues appear generous. IMPRESSION: 1. The tracheostomy tube is stable in position well right upper extremity PICC catheter is been rem julia. 2. Persistent mild cardiomegaly without CHF. 3. Near resolution of the left lower lobe infiltrate with persistent streaky infiltrate or discoid atelectasis at the right lung base. Physician Shawanda Date Time Electronically viewed and signed by Physician Shawanda on 01/12/2017 20:36 /
[2017-01-12 20:41] LABS: SQUAMOUS EPITHELIAL CELL,UR MODERATE
[2017-01-12 20:43] LABS: BACTERIA,URINE MODERATE
[2017-01-12] MEDS ORDERED: CRAN425C GTB (20:48)
[2017-01-12] MEDS ORDERED: LACT1CAP33 GTB (20:50)
[2017-01-12] MEDS ORDERED: INSU300I SQ (20:51)
[2017-01-12] MEDS ORDERED: ACET325T33 GTB (20:52)
[2017-01-12] MEDS ORDERED: THIA100T56 GTB (20:53)
[2017-01-12] MEDS ORDERED: LANT3I SC ×2 (21:09)
[2017-01-12 21:15] VITALS: TEMP 97.6
[2017-01-12] MEDS ORDERED: DEXTROSE 5%-0.45% NACL 1,000 ML IV SCH (21:54)
[2017-01-12] MEDS ORDERED: PHENYLephrine 20MG IN 250 ML 250 ML IV SCH (22:00)
[2017-01-12] MEDS ORDERED: VANCOMYCIN IV PER PHARMACY XX SCH (22:00)
[2017-01-12] MEDS ORDERED: ACETAMINOPHEN 650 MG SUPP PR PRN (22:00)
[2017-01-12] MEDS ORDERED: morphine 2 MG INJ IV PRN (22:00)
[2017-01-12] MEDS ORDERED: NORepinephrine 8MG/250 ML (PMX 250 ML IV SCH (22:00)
[2017-01-12] MEDS ORDERED: ALBUTEROL/IPRATROPIUM (NEB) 3 ML AMP NEB PRN (22:00)
[2017-01-12] MEDS ORDERED: ONDANSETRON 4 MG INJ IV PRN (22:00)
[2017-01-12] MEDS ORDERED: PROPOFOL 100 ML IV SCH (22:00)
[2017-01-12] MEDS ORDERED: DOPamine-D5W 1.6 MG/ML 250 ML IV SCH (22:30)
[2017-01-12] MEDS ORDERED: EPINEPHrine 4 MG in DEXTROSE 5% 246 ML IV SCH (23:30)
[2017-01-12] MEDS ORDERED: VASOPRESSIN 60 UNIT in DEXTROSE 5% 57 ML IV SCH (23:30)
[2017-01-12 23:47] LABS: AADO2 Arterial 513.3 mmHg (7.0-24.0); Allen Test ACCEPTAB; Arterial Base Excess -26.3 mmol/L (-3.0-3); Arterial COHb 0.3 % (0.0-3.0); Arterial HCO3 5.7 mmol/L (22.0-26.0); Arterial MetHb 0.5 % (0.0-1.5); Arterial Total Hemglobin 13.8 g/dl (12.0-18.0); Blood Gas Low PEEP Setting 0 cmH2O; MODE VENT - AC
[2017-01-13] VITALS (23 sets, daily range): BP systolic 33–70; BP diastolic 18–48; PULSE 44–105; RESP 16–19
[2017-01-13] MEDS ORDERED: NA BICARBONATE 8.4% 50 ML SYG ONE (00:20)
[2017-01-13] MEDS ORDERED: NA BICARBONATE 8.4% 50 ML SYG IV ONE (00:30)
[2017-01-13] MEDS ORDERED: DOPamine 1,600 MG in DEXTROSE 5% 210 ML IV SCH (00:30)
[2017-01-13] MEDS ORDERED: VANCOMYCIN 1 GM in NS 250 ML IVPB ONE (00:30)
[2017-01-13] MEDS ORDERED: NORepinephrine 32 MG in DEXTROSE 5% 218 ML IV SCH (00:30)
[2017-01-13] MEDS ORDERED: PHENYLephrine 160 MG in DEXTROSE 5% 484 ML IV SCH (00:30)
[2017-01-13] MEDS ORDERED: SODIUM BICARBONATE (IV ADD) 150 MEQ in DEXTROSE 5%-0.45% NACL 850 ML IV SCH (00:30)
[2017-01-13] MEDS ORDERED: DEXTROSE 50% 50 ML SYRINGE IV PRN ×4 (01:00→07:35)
[2017-01-13] MEDS ORDERED: INSULIN HUMAN REGULAR 100 UNIT in SOD CHLORIDE 0.9% 99 ML IV SCH (01:00)
[2017-01-13] MEDS: ACCU-CHEK XX SCH ×5 (01:23→05:20)
[2017-01-13 02:05] LABS: ADD SCAN DIFF NO
[2017-01-13 02:45] LABS: ABNORMAL IP MESSAGE 1; HEMATOCRIT 39.4 % (42.0-52.0); HEMOGLOBIN 11.3 g/dl (14.0-18.0); MEAN CORPUSCULAR HEMOGLOBIN 30.4 pg (29.0-33.0); MEAN CORPUSCULAR HGB CONC 28.7 g/dl (32.0-37.0); MEAN CORPUSCULAR VOLUME 105.9 fl (82.0-101.0); MEAN PLATELET VOLUME 11.5 fl (7.4-10.4); RED BLOOD COUNT 3.72 10^6/ul (4.70-6.10); RED CELL DISTRIBUTION WIDTH 15.6 % (11.5-14.5); WHITE BLOOD COUNT 18.4 10^3/ul (4.8-10.8)
[2017-01-13 03:04] LABS: CALCIUM 8.8 mg/dl (8.4-10.2); CREATININE 1.95 mg/dl (0.61-1.24)
[2017-01-13 03:12] LABS: POTASSIUM 6.1 mmol/L (3.5-5.1)
[2017-01-13 03:16] LABS: EOSINOPHILS # 0.2 10^3/ul (0.0-0.5); LYMPHOCYTES # 6.3 10^3/ul (0.8-2.9); MONOCYTE # 0.6 10^3/ul (0.3-0.9); NEUTROPHIL # 9.8 10^3/ul (1.6-7.5)
[2017-01-13 03:20] LABS: PLATELET ESTIMATE PLT APPEAR DECREASED
[2017-01-13 03:21] LABS: PLATELET COUNT 104 10^3/UL (140-415)
[2017-01-13] MEDS ORDERED: NA POLYST SULFON 15 GM/60 ML BTL PR ONE (03:30)
[2017-01-13] MEDS ORDERED: OCTREOTIDE 500 MCG in SOD CHLORIDE 0.9% 49 ML IV SCH (04:00)
--- NOTE | 2017-01-13 05:02 | HP ---
DATE OF ADMISSION: 01/12/2017 CHIEF COMPLAINT: Status post cardiac arrest. HISTORY OF PRESENT ILLNESS: The patient is a 56-year-old male with a history of traumatic brain inj ury who is chronically in a vegetative state for the past 3 years, history of trach dependent respir atory failure, chronic encephalopathy, coronary artery disease, dysphagia status post G-tube, hypert ension, and anemia who was sent from a [facility] after having had cardiac arrest. IO access was established by EMS, and he was given epinephrine through that. The patient was subsequently brought to the ER. In the ER, the patient has been severely hypotensive, and at my initial examination, he was on 3 pressors, and his systolic blood pressure on the monitor was in the 60s. The patient was completely unresponsive. He has several lab abnormalities including a creatinine of almost 2, AST 1 400, AST in the 500s. Initial lactic acid 24. ABG showing a pH of 6.8, bicarbonate of 5. His bloo d glucose was almost 500 with anion gap of around 35. By the time of my examination around 2200, he had over 1 liter of blood suctioned through NG tube. His initial hemoglobin when he came in was 12 . I had a long discussion with his who was at the bedside, and she stated that when he was abl e to talk 3 years ago, he stated to her clearly that he did not want any heroic measures like CPR, c hest compressions, or any resuscitative effort. She, however, stated he never signed the paper for that. I spoke to her through a glass processing worker in the ER, and she made him DNR/DNI. A fourth p ressor is going to be started now. He is getting IV fluids with bicarbonate. I will start him now on insulin drip and antibiotics, and he is going to get admitted to ICU. His initial troponin was m ildly elevated but EKG without ST elevation or depression. REVIEW OF SYSTEMS: Unable to assess. PAST MEDICAL HISTORY: As per HPI. PAST MEDICAL HISTORY: As per HPI. SOCIAL HISTORY: No reported history of tobacco, alcohol, or illicit drug use. ALLERGIES: From [facility]. Please see reconciled medications. MEDICATIONS: From [facility]. Please see reconciled medications. PHYSICAL EXAMINATION: VITAL SIGNS: On the monitor, showing blood pressure of 65/40 on 3 pressors, heart rate 105, respira tory rate 22, afebrile, oxygen saturation 95% on 100% FIO2. GENERAL: The patient is completely unresponsive. HEENT: Normocephalic. Pupils are not reactive to light. No corneal reflex. NECK: He is status post tracheostomy, on a vent. No gag reflex. CARDIOVASCULAR: Tachycardic. LUNGS: Diminished breath sounds anteriorly. ABDOMEN: Soft. There is a G-tube in place. Positive bowel sounds. EXTREMITIES: No edema. NEUROLOGIC: The patient is completely unresponsive at this point. LABORATORY: Pertinent positive results as mentioned in the HPI including WBC of almost 17,000. IMPRESSION: 1. Cardiac arrest status post ROSC. 2. Shock, currently on 3 pressors. 3. History of traumatic brain injury. 4. In a chronic vegetative state. 5. Chronic trach-dependent respiratory failure. 6. History of coronary artery disease. 7. History of quadriplegia 8. History of chronic kidney disease 9. Severe anion gap metabolic acidosis. 10. Hyperglycemia. 11. Gastrointestinal bleed. PLAN: Admit to ICU. Continue ventilator support and pressor support. He will be placed on broad s pectrum antibiotic. We will continue IV fluid with bicarbonate. We will follow up on culture resul ts. We will place a cardiology, pulmonary, ID, and nephrology consultation. We will also place a n eurology consult, and we will check EEG. The patient is stable at this point, but we will also plac e a GI consult. The patient has an extremely poor prognosis at this point and currently has been made a DNR and DNI by his . Dictated By: SHAMEKA VALERIO/REMEDIOS Conf#: [id number] DID#: [id number]
[2017-01-13] MEDS ORDERED: PANTOPRAZOLE 40 MG INJ IV SCH (06:00)
[2017-01-13] MEDS ORDERED: GLUCOSE GEL 15 GRAM TUBE PO PRN ×2 (07:35)
[2017-01-13] MEDS ORDERED: GLUCOSE GEL 15 GRAM TUBE BUCCAL PRN (07:35)
[2017-01-13] MEDS ORDERED: INSULIN ASPART [NOVOLOG] 3 ML PEN SC SCH (07:35)
[2017-01-13] MEDS ORDERED: GLUCAGON 1 MG INJ IM PRN (07:35)
[2017-01-13] MEDS ORDERED: VANCOMYCIN 1 GM in NS 250 ML IVPB SCH (16:00)
== END 2017-01-13 05:20 | disposition expired | DRG 871 ==
LOC: E/R 18:59 → ICU 20:25
PROVIDERS: ADMIT Internal Medicine; ATTEND Internal Medicine
PROC: 5A1935Z Respiratory Ventilation, Less than 24 Consecutive Hours (ICD-10-PCS; principal; 2017-01-12)
PROC: 06HN33Z Insertion of Infusion Device into Left Femoral Vein, Percutaneous Approach (ICD-10-PCS; 2017-01-12)
PROC: 30233N1 Transfusion of Nonautologous Red Blood Cells into Peripheral Vein, Percutaneous Approach (ICD-10-PCS; 2017-01-12)
DX: A41.9 Sepsis, unspecified organism (principal); R65.21 Severe sepsis with septic shock; G82.50 Quadriplegia, unspecified; Z99.11 Dependence on respirator [ventilator] status; G93.40 Encephalopathy, unspecified; R57.0 Cardiogenic shock; Z93.0 Tracheostomy status; N17.9 Acute kidney failure, unspecified; E87.2 Acidosis; K92.2 Gastrointestinal hemorrhage, unspecified; N39.0 Urinary tract infection, site not specified; E11.22 Type 2 diabetes mellitus with diabetic chronic kidney disease; E11.65 Type 2 diabetes mellitus with hyperglycemia; Z93.1 Gastrostomy status; R13.10 Dysphagia, unspecified; K21.9 Gastro-esophageal reflux disease without esophagitis; I25.10 Atherosclerotic heart disease of native coronary artery without angina pectoris; E78.5 Hyperlipidemia, unspecified; I12.9 Hypertensive chronic kidney disease with stage 1 through stage 4 chronic kidney disease, or unspecified chronic kidney disease; N18.9 Chronic kidney disease, unspecified; Z66 Do not resuscitate; Z79.4 Long term (current) use of insulin
CPT/HCPCS: 36415; 36430; 36600; 71010; 76937; 80048; 80053; 81001; 82803; 82962; 83605; 83690; 84484; 85025; 85610; 85730; 86850; 86900; 86901; 86920; 87040; 87086; 92950; 93005; 94002; 94003; 96365; 96366; 96367; 96375; 96376; C1751; J0171; J0692; J1265; J1815; J2354; J2370; J3370; J7030; J7042; J7060; J7070; P9016